=== PATIENT | female | born 1955 | race Caucasian/White ===

== ENCOUNTER 2017-08-14 12:09 | Inpatient (IN) | payer OTHER, MEDICAID, MEDICARE ==
[~2017-08-14] VITALS: Ht 170.2 cm; Wt 115.8 kg
[2017-08-14 12:20] VITALS: BP 157/92; PULSE 105; RESP 22; TEMP 98.9; O2SAT 98
--- NOTE | 2017-08-14 12:26 | PD ---
Physical Exam Time Seen by Provider: 12:23 Narrative Pt presents for evaluation of feeling confused and anxiety acute onset last evening. Denies CP or tightness. But feels increasing shortness of breath. Denies alcohol or illicit drug use. Pt reports sore throat. No other recent illness. Hx of Hep C, PTSD. Data Data Last Documented VS Vital Signs Date Time Temp Pulse Resp B/P (MAP) Pulse Ox O2 Delivery O2 Flow Rate FiO2 08/14/17 14:02 98 16 08/14/17 12:32 140/83 (102) 100 08/14/17 12:20 98.9 Room Air Orders Orders Complete Blood Count With Diff (08/14/17 12:41) Comprehensive Metabolic Panel (08/14/17 12:41) Electrocardiogram (08/14/17 12:41) Psych Screen (08/14/17 12:41) Drug Screen, Random Urine (08/14/17 12:41) Chest, Single Ap (08/14/17 12:41) Lorazepam Inj (Ativan Inj) (08/14/17 12:45) Labs Laboratory Tests Test 08/14/17 13:08 08/14/17 13:12 Urine Opiates Screen NEG Urine Barbiturates Screen NEG Urine Amphetamines Screen NEG Urine Benzodiazepines Screen NEG Urine Cocaine Screen NEG Urine Cannabinoids Screen NEG White Blood Count 9.0 TH/MM3 Red Blood Count 4.14 MIL/MM3 Hemoglobin 12.6 GM/DL Hematocrit 40.2 % Mean Corpuscular Volume 97.0 FL Mean Corpuscular Hemoglobin 30.5 PG Mean Corpuscular Hemoglobin Concent 31.4 % Red Cell Distribution Width 13.4 % Platelet Count 205 TH/MM3 Mean Platelet Volume 9.3 FL Neutrophils (%) (Auto) 68.2 % Lymphocytes (%) (Auto) 20.4 % Monocytes (%) (Auto) 10.3 % Eosinophils (%) (Auto) 0.3 % Basophils (%) (Auto) 0.8 % Neutrophils # (Auto) 6.1 TH/MM3 Lymphocytes # (Auto) 1.8 TH/MM3 Monocytes # (Auto) 0.9 TH/MM3 Eosinophils # (Auto) 0.0 TH/MM3 Basophils # (Auto) 0.1 TH/MM3 CBC Comment DIFF FINAL Differential Comment Blood Urea Nitrogen 25 MG/DL Creatinine 1.58 MG/DL Random Glucose 128 MG/DL Total Protein 8.2 GM/DL Albumin 4.0 GM/DL Calcium Level 10.6 MG/DL Alkaline Phosphatase 74 U/L Aspartate Amino Transf (AST/SGOT) 74 U/L Alanine Aminotransferase (ALT/SGPT) 56 U/L Total Bilirubin 0.7 MG/DL Sodium Level 135 MEQ/L Potassium Level 3.9 MEQ/L Chloride Level 102 MEQ/L Carbon Dioxide Level 23.2 MEQ/L Anion Gap 10 MEQ/L Estimat Glomerular Filtration Rate 33 ML/MIN [facility] Medical Record Reviewed: Yes Supervised Visit with MARIELENA: No Condition: Stable Radha Contreras Aug 14, 2017 12:26
[2017-08-14 12:32] VITALS: BP 140/83; PULSE 94; RESP 16; O2SAT 100
[2017-08-14] MEDS ORDERED: LORazepam 2 MG/ML VIAL IV PUSH ONE ×2 (12:45→17:00)
--- NOTE | 2017-08-14 12:48 | PD ---
HPI Chief Complaint: Anxiety Time Seen by Provider: 12:41 Travel History International Travel<30 days: No Contact w/Intl Traveler<30days: No Traveled to known affect area: No History of Present Illness HPI 61-year-old female patient with history of PTSD, presents to the ER today because she states that she is having palpitations, feeling jittery, while she was driving and was stopped by the boiling off winder, considering how she was looking, the boiling off winder brought her here. She apparently had problems with the battery in her car in the boiling off winder state that they would rather do here to be evaluated. She has been having symptoms since yesterday, palpitations, shortness of breath. She is fairly tearful, stating that she feels very lonely because her entire family including her son has in the past 7 years. She states is currently living with somebody who treats her poorly. She denies any suicidal or homicidal ideation. Modifying Factors: None Associated Signs & Symptoms: Palpitations, feeling jittery, anxiety Risk Factors: History of PTSD, anxiety attacks PFSH Past Medical History Psychiatric: Yes (PTSD) : 3 Para: 1 : 2 Social History Alcohol Use: No Tobacco Use: No Substance Use: No Allergies-Medications (Allergen,Severity, Reaction): Coded Allergies: carbamazepine (Verified Allergy, Severe, 08/14/17) levofloxacin (Verified Allergy, Severe, 08/14/17) Review of Systems Except as stated in HPI: all other systems reviewed are Neg Physical Exam Narrative GENERAL: Well-developed very anxious appearing elderly white female patient currently in moderate distress, getting tearful on evaluation. Awake and oriented 3. SKIN: Focused skin assessment warm/dry. HEAD: Atraumatic. Normocephalic. EYES: Pupils equal and round. No scleral icterus. No injection or drainage. ENT: No nasal bleeding or discharge. Mucous membranes pink and moist. NECK: Trachea midline. No JVD. CARDIOVASCULAR: Regular rate and rhythm. No murmur appreciated. RESPIRATORY: No accessory muscle use. Clear to auscultation. Breath sounds equal bilaterally. GASTROINTESTINAL: Abdomen soft, non-tender, nondistended. Hepatic and splenic margins not palpable. MUSCULOSKELETAL: No obvious deformities. No clubbing. No cyanosis. No edema. NEUROLOGICAL: Awake and alert. No obvious cranial nerve deficits. Motor grossly within normal limits. Normal speech. PSYCHIATRIC: Anxious mood and affect; insight and judgment normal. Data Data Last Documented VS Vital Signs Date Time Temp Pulse Resp B/P (MAP) Pulse Ox O2 Delivery O2 Flow Rate FiO2 08/14/17 14:02 98 16 08/14/17 12:32 140/83 (102) 100 08/14/17 12:20 98.9 Room Air Orders Orders Complete Blood Count With Diff (08/14/17 12:41) Comprehensive Metabolic Panel (08/14/17 12:41) Electrocardiogram (08/14/17 12:41) Psych Screen (08/14/17 12:41) Drug Screen, Random Urine (08/14/17 12:41) Chest, Single Ap (08/14/17 12:41) Lorazepam Inj (Ativan Inj) (08/14/17 12:45) Labs Laboratory Tests Test 08/14/17 13:08 08/14/17 13:12 Urine Opiates Screen NEG Urine Barbiturates Screen NEG Urine Amphetamines Screen NEG Urine Benzodiazepines Screen NEG Urine Cocaine Screen NEG Urine Cannabinoids Screen NEG White Blood Count 9.0 TH/MM3 Red Blood Count 4.14 MIL/MM3 Hemoglobin 12.6 GM/DL Hematocrit 40.2 % Mean Corpuscular Volume 97.0 FL Mean Corpuscular Hemoglobin 30.5 PG Mean Corpuscular Hemoglobin Concent 31.4 % Red Cell Distribution Width 13.4 % Platelet Count 205 TH/MM3 Mean Platelet Volume 9.3 FL Neutrophils (%) (Auto) 68.2 % Lymphocytes (%) (Auto) 20.4 % Monocytes (%) (Auto) 10.3 % Eosinophils (%) (Auto) 0.3 % Basophils (%) (Auto) 0.8 % Neutrophils # (Auto) 6.1 TH/MM3 Lymphocytes # (Auto) 1.8 TH/MM3 Monocytes # (Auto) 0.9 TH/MM3 Eosinophils # (Auto) 0.0 TH/MM3 Basophils # (Auto) 0.1 TH/MM3 CBC Comment DIFF FINAL Differential Comment Blood Urea Nitrogen 25 MG/DL Creatinine 1.58 MG/DL Random Glucose 128 MG/DL Total Protein 8.2 GM/DL Albumin 4.0 GM/DL Calcium Level 10.6 MG/DL Alkaline Phosphatase 74 U/L Aspartate Amino Transf (AST/SGOT) 74 U/L Alanine Aminotransferase (ALT/SGPT) 56 U/L Total Bilirubin 0.7 MG/DL Sodium Level 135 MEQ/L Potassium Level 3.9 MEQ/L Chloride Level 102 MEQ/L Carbon Dioxide Level 23.2 MEQ/L Anion Gap 10 MEQ/L Estimat Glomerular Filtration Rate 33 ML/MIN MDM Medical Decision Making Medical Screen Exam Complete: Yes Emergency Medical Condition: Yes Medical Record Reviewed: Yes Interpretation(s) Laboratory Tests Test 08/14/17 13:08 08/14/17 13:12 Mean Corpuscular Hemoglobin Concent 31.4 % (32.0-36.0) Monocytes (%) (Auto) 10.3 % (0.0-8.0) Blood Urea Nitrogen 25 MG/DL (7-18) Creatinine 1.58 MG/DL (0.50-1.00) Random Glucose 128 MG/DL (74-106) Calcium Level 10.6 MG/DL (8.5-10.1) Aspartate Amino Transf (AST/SGOT) 74 U/L (15-37) Alanine Aminotransferase (ALT/SGPT) 56 U/L (10-53) Sodium Level 135 MEQ/L (136-145) Estimat Glomerular Filtration Rate 33 ML/MIN (>89) Differential Diagnosis Anxiety attack versus dysrhythmias versus metabolic issues versus psychosis Narrative Course Patient appears acutely anxious and in significant emotional distress. She was given Ativan in the ER. Her lab work did not show any signs significant metabolic issues and chest x-ray was unremarkable. At this point, my plan would be to medically clear her for psychiatric evaluation. I have also asked case management to talk to the patient regarding her social circumstances. Diagnosis Primary Impression: Anxiety attack Condition: Stable Leonarda Carrillo MD Aug 14, 2017 12:48
--- NOTE | 2017-08-14 13:19 | RADRPT ---
EXAM DATE/TIME: 08/14/2017 13:02 [facility] COMPARISON: No previous studies available for comparison. INDICATIONS : Short of breath., palpitations MEDICAL HISTORY : asthma, thyroid SURGICAL HISTORY : None. ENCOUNTER: Initial ACUITY: 1 day PAIN SCORE: 0/10 LOCATION: Bilateral chest FINDINGS: A single view of the chest demonstrates the lungs to be symmetrically aerated without evidence of mas s, infiltrate or effusion. The cardiomediastinal contours are unremarkable. Osseous structures are intact. CONCLUSION: 1. No acute cardiopulmonary disease. Demar Knowles MD on August 14, 2017 at 13:17 Board Certified Radiologist. This report was verified electronically.
[2017-08-14 13:26] LABS: AUTOMATED NEUTROPHIL # 6.1 TH/MM3 (1.8-7.7); BASOPHIL # 0.1 TH/MM3 (0-0.2); BASOPHIL % 0.8 % (0.0-2.0); EOSINOPHIL % 0.3 % (0.0-4.0); HEMATOCRIT 40.2 % (35.0-46.0); HEMO FLAGS DIFF FINAL; LYMPH % 20.4 % (9.0-44.0); LYMPHOCYTE # 1.8 TH/MM3 (1.0-4.8); MEAN CORPUSCULAR HEMOGLOBIN 30.5 PG (27.0-34.0); MEAN CORPUSCULAR HGB CONC 31.4 % (32.0-36.0); MONO % 10.3 % (0.0-8.0); NEUT % 68.2 % (16.0-70.0); PLATELET COUNT 205 TH/MM3 (150-450); RED BLOOD COUNT 4.14 MIL/MM3 (4.00-5.30); RED CELL DISTRIBUTION WIDTH 13.4 % (11.6-17.2)
[2017-08-14 13:47] LABS: ALKALINE PHOSPHATASE 74 U/L (45-117); TOTAL BILIRUBIN ADULT 0.7 MG/DL (0.2-1.0)
[2017-08-14 13:51] LABS: ALT (GPT) 56 U/L (10-53); ANION GAP 10 MEQ/L (5-15); AST (GOT) 74 U/L (15-37); BICARBONATE 23.2 MEQ/L (21.0-32.0); BLOOD UREA NITROGEN 25 MG/DL (7-18); CHLORIDE 102 MEQ/L (98-107); GLOMERULAR FILTRATION RATE 33 ML/MIN (>89); POTASSIUM 3.9 MEQ/L (3.5-5.1); SODIUM (NA) 135 MEQ/L (136-145)
[2017-08-14 16:15] LABS: CKMB 18.5 NG/ML (0.5-3.6)
[2017-08-14 17:26] VITALS: BP 165/86; PULSE 97; RESP 18; TEMP 98.2; O2SAT 98
[2017-08-14 18:17] VITALS: BP 137/80; PULSE 85; RESP 18; O2SAT 98
[2017-08-14] MEDS ORDERED: TRAM50TA PO (19:22)
[2017-08-14] MEDS ORDERED: METO50TA PO (19:22)
[2017-08-14] MEDS ORDERED: LEXA10TA PO (19:22)
[2017-08-14] MEDS ORDERED: ALBUAER3 INH (19:22)
[2017-08-14] MEDS ORDERED: LEVO.1 PO (19:22)
[2017-08-14] MEDS ORDERED: AMBI10TA PO (19:22)
[2017-08-14] MEDS ORDERED: CLON0.5T PO (19:22)
[2017-08-14] MEDS ORDERED: HALOPERIDOL LACTATE 5 MG/ML AMP IM ONE (22:45)
[2017-08-14] MEDS ORDERED: LORazepam 2 MG/ML VIAL IM ONE (22:45)
[2017-08-15 05:00] VITALS: BP 144/68; PULSE 100; RESP 14; O2SAT 97
[2017-08-15 09:00] VITALS: BP 146/82; PULSE 90; RESP 18; O2SAT 98
[2017-08-15 09:24] LABS: BLOOD, URINE NEG (NEG); GLUCOSE,URINE NEG (NEG); KETONE, URINE TRACE mg/dL (NEG); NITRITE,URINE NEG (NEG); SQUAMOUS EPITHELIAL CELL URINE 3 /hpf (0-5)
[2017-08-15 09:25] LABS: COMMENT (UR) CULTURE INDICATED; CULTURE IF INDICATED CULTURE INDICATED; URINE COLOR YELLOW (YELLW/STRAW)
[2017-08-15] MEDS ORDERED: BACT800T5 PO (09:33)
[2017-08-15] MEDS ORDERED: SULFAMETHOXAZOLE-TRIMETHOPRIM DS 800-160 MG TAB PO ONE (09:45)
[2017-08-15] MEDS ORDERED: diphenhydrAMINE HCL 50 MG CAP PO PRN (12:00)
[2017-08-15] MEDS ORDERED: LORazepam 2 MG/ML VIAL IM PRN (12:00)
[2017-08-15] MEDS ORDERED: ACETAMINOPHEN 325 MG TAB PO PRN (12:00)
[2017-08-15] MEDS ORDERED: diphenhydrAMINE HCL 50 MG/ML VIAL IM PRN (12:00)
[2017-08-15] MEDS ORDERED: MAGNESIUM HYDROXIDE SUSP 30 ML CUP PO PRN (12:00)
[2017-08-15] MEDS ORDERED: ALUMINUM/MAGNESIUM/SIMETH 30 ML CUP PO PRN (12:00)
--- NOTE | 2017-08-15 12:06 | HHI.HP ---
Provisional Diagnosis Admission Date [place] I. Brief psychotic disorder Certification of Person's Competence To Provide Express and Informed Consent I have personally examined Zoe Loyola , a person being served at [facility] on, Aug 15, 2017 11:57. Express and informed consent means consent voluntarily given in writing, by a competent person, after sufficient explanation and disclosure of the subject matter involved to enable the person to make a knowing and willful decision without any element of force, fraud, deceit, duress, or other form of constraint or coercion. This person is 18 years of age or older, is not now known to be incompetent to consent to treatment with a guardian advocate, and does not have a health care surrogate or proxy currently making medical treatment decisions. I have found this person to be one of the following: [] Competent to provide express and informed consent, as defined above, for voluntary admission to this facility and is competent to provide express and informed consent for treatment. He/she has the consistent capacity to make well reasoned, willful, and knowing decisions concerning his or her medical or mental health treatment. The person fully and consistently understands the purpose of the admission for examination/placement and is fully capable of personally exercising all rights [place] [x] Incompetent to provide express and informed consent to voluntary admission, and this is incompetent to provide express and informed consent to treatment. The person must be transferred to involuntary status and a petition for a guardian advocate filed with the Circuit Court. [] Refusing to provide express and informed consent to voluntary admission but is competent to provide express and informed consent for treatment. The person must be discharged or transferred to involuntary status. Form shall be completed within 24 hours of a person's arrival at the receiving facility and filed in the clinical record of each person: 1. Admitted on a voluntary basis 2. Permitted to provide express and informed consent to his/her own treatment 3. Allowed to transfer from involuntary to voluntary status 4. Prior to permitting a person to consent to his or her own treatment after having been previously found incompetent to consent to treatment. History of Present Illness Capacity: Lacks Capacity HPI 61-year-old female, poor historian, brought in by law enforcement for suicidal ideation. Patient was apparently stopped by law enforcement and found to be behaving strangely, with anxiety, tearfulness, jittery, stating she had lost all members of her family in the last 7 years, including her son. She reportedly wanted to join her son and told the officers that she was hearing voices. Upon interview, patient is unable to provide any cogent history. She returned. Yasmany talks about someone named Dalton and the family taking things from her. She demonstrates significant looseness of associations that borders on word salad. She is obviously responding to internal stimuli. She exhibits thought blocking. She has ideas of reference. She feels paranoid and that she states the hospital staff are trying to control her and ruined her life. She is unable to answer questions directly and provides nonsensical responses, tangential responses and circumstantial responses. She does admit to ongoing auditory hallucinations. She also admits to suicidal ideation. She does not have a plan as to how she would kill herself, but obviously driving a car in this psychotic state is dangerous to herself and others. Review of Systems Except as stated in HPI: all other systems reviewed are Neg Past Psych History Psychological trauma history Patient admits to past psychiatric history but cannot provide Violence risk - others (6 mos) High based on recent behavior. Violence risk - self (6 mos) High based on recent behavior. Substance Abuse History Drugs/Alcohol past 12 months Denied Past Family Social History Coded Allergies: carbamazepine (Verified Allergy, Severe, 08/14/17) levofloxacin (Verified Allergy, Severe, 08/14/17) Active Scripts Sulfamethoxazole-Trimethoprim (Bactrim DS) 800-160 Mg Tab, 1 TAB PO BID for Infection, #14 TAB 0 Refills Prov:Yaya Hsieh MD 08/15/17 Reported Medications Albuterol 8.5 GM Inh (Proair Hfa 8.5 GM Inh) 90 Mcg/Act Aer, 1 PUFF INH Q4-6H Y for SHORTNESS OF BREATH, #1 INHALER 0 Refills 108 mcg/actuation 08/14/17 Tramadol (Tramadol) 50 Mg Tab, 50-100 MG PO Q4-6H Y for PAIN, TAB 0 Refills 08/14/17 Metoprolol Tartrate (Metoprolol Tartrate) 50 Mg Tab, 50 MG PO Q6HR, #30 TAB 0 Refills 08/14/17 Levothyroxine (Synthroid) 100 Mcg Tab, 100 MCG PO DAILY for Thyroid, #30 TAB 0 Refills 08/14/17 Escitalopram (Lexapro) 10 Mg Tab, 10 MG PO DAILY, #30 TAB 0 Refills 08/14/17 Clonazepam (Clonazepam) 0.5 Mg Tab, 0.5 MG PO BID, #60 TAB 0 Refills 08/14/17 Zolpidem (Ambien) 10 Mg Tab, 10 MG PO HS, TAB 0 Refills 08/14/17 Family History Unable to provide family history. Social History Unable to provide social history. Patient's Strengths (min. 2) Resilient and has access to healthcare. Physical Exam GENERAL: SKIN: Warm and dry. HEAD: Normocephalic. EYES: No scleral icterus. No injection or drainage. NECK: Supple, trachea midline. No JVD or lymphadenopathy. CARDIOVASCULAR: Regular rate and rhythm without murmurs, gallops, or rubs. RESPIRATORY: Breath sounds equal bilaterally. No accessory muscle use. GASTROINTESTINAL: Abdomen soft, non-tender, nondistended. MUSCULOSKELETAL: No cyanosis, or edema. BACK: Nontender without obvious deformity. No CVA tenderness. Vital Signs Vital Signs Date Time Temp Pulse Resp B/P (MAP) Pulse Ox O2 Delivery O2 Flow Rate FiO2 08/15/17 09:00 90 18 146/82 (103) 98 Room Air 08/14/17 17:26 98.2 Lab Results Test 08/14/17 13:08 08/14/17 13:12 Urine Color YELLOW Urine Turbidity CLOUDY Urine pH 5.0 Urine Specific [place] 1.022 Urine Protein TRACE mg/dL Urine Glucose (UA) NEG mg/dL Urine Ketones TRACE mg/dL Urine Occult Blood NEG Urine Nitrite NEG Urine Bilirubin NEG Urine Urobilinogen LESS THAN 2.0 MG/DL Urine Leukocyte Esterase LARGE Urine WBC 22 /hpf Urine Squamous Epithelial Cells 3 /hpf Urine Amorphous Sediment MOD Microscopic Urinalysis Comment CULTURE INDICATED Urine Opiates Screen NEG Urine Barbiturates Screen NEG Urine Amphetamines Screen NEG Urine Benzodiazepines Screen NEG Urine Cocaine Screen NEG Urine Cannabinoids Screen NEG White Blood Count 9.0 TH/MM3 Red Blood Count 4.14 MIL/MM3 Hemoglobin 12.6 GM/DL Hematocrit 40.2 % Mean Corpuscular Volume 97.0 FL Mean Corpuscular Hemoglobin 30.5 PG Mean Corpuscular Hemoglobin Concent 31.4 % Red Cell Distribution Width 13.4 % Platelet Count 205 TH/MM3 Mean Platelet Volume 9.3 FL Neutrophils (%) (Auto) 68.2 % Lymphocytes (%) (Auto) 20.4 % Monocytes (%) (Auto) 10.3 % Eosinophils (%) (Auto) 0.3 % Basophils (%) (Auto) 0.8 % Neutrophils # (Auto) 6.1 TH/MM3 Lymphocytes # (Auto) 1.8 TH/MM3 Monocytes # (Auto) 0.9 TH/MM3 Eosinophils # (Auto) 0.0 TH/MM3 Basophils # (Auto) 0.1 TH/MM3 CBC Comment DIFF FINAL Differential Comment Blood Urea Nitrogen 25 MG/DL Creatinine 1.58 MG/DL Random Glucose 128 MG/DL Total Protein 8.2 GM/DL Albumin 4.0 GM/DL Calcium Level 10.6 MG/DL Alkaline Phosphatase 74 U/L Aspartate Amino Transf (AST/SGOT) 74 U/L Alanine Aminotransferase (ALT/SGPT) 56 U/L Total Bilirubin 0.7 MG/DL Sodium Level 135 MEQ/L Potassium Level 3.9 MEQ/L Chloride Level 102 MEQ/L Carbon Dioxide Level 23.2 MEQ/L Anion Gap 10 MEQ/L Estimat Glomerular Filtration Rate 33 ML/MIN Total Creatine Kinase 673 U/L Creatine Kinase MB 18.5 NG/ML Creatine Kinase MB % 2.7 % Troponin I 0.02 NG/ML Date/Time Source Procedure Growth Status 08/14/17 13:08 Urine Clean Catch Urine Culture Pending Received Mental Status Examination Speech: Incoherent Orientation: Person Memory: Impaired (describe) Thought Process: Flight of Ideas, Loose Association, Tangential, Thought Blocking Thought Content: Bizarre thinking, Paranoid Hallucination Type: Auditory Attention and Concentration: Easily Distracted Suicidal Ideation: Yes Previous Suicide Attempts: No Homicidal Ideation: No Previous Homicide Attempts: No Insight: Poor Judgment: WNL, Poor Affect: Anxious Mood: Anxious Motor Activity: Normal gait Assessment & Plan Problem List: (1) Brief psychotic disorder ICD Codes: F23 - Brief psychotic disorder Assessment & Plan Estimated LOS: days 61-year-old female obviously psychotic, and driving a car, [place] acted by police for suicidal ideation. Patient is felt to be highly dangerous to self and others. For this reason she is being admitted for further evaluation and treatment. This physician is ordering a CBC and comprehensive metabolic panel to determine if any infectious or metabolic process is causing or contributing to her psychosis. Additionally, we will obtain thyroid stimulating hormone levels, vitamin B-12 levels and vitamin D levels to determine if any deficiency in these areas is causing or contributing to her psychosis. This physician has furthermore ordered an EKG to determine the patient's cardiac conduction status prior to starting psychotropic medicines that are not needed emergently, to protect her cardiac conduction system. Patient has overweight and likely to have cardiovascular disease. This physician has consulted psychiatry for second opinion as the patient is not felt to be competent to make medical decisions. This case was discussed with nurse Granado. Additionally, case management services will be involved to hopefully obtain further information and assist with disposition planning. Talha Mireles MD Aug 15, 2017 12:06
[2017-08-15] MEDS: LORazepam 1 MG TAB PO PRN ×2 (12:14→20:53)
[2017-08-15 12:15] VITALS: BP 144/82; PULSE 80; RESP 18; O2SAT 99
--- NOTE | 2017-08-15 14:20 | EKG ---
Date Performed: 08/14/2017 Time Performed: 15:02:39 PTAGE: 61 years EKG: Sinus rhythm ANTERIOR ST DEPRESSION T WAVE ABNORMALITY ABNORMAL ECG INTERPRETATION BASED ON A DEFAULT AGE OF 38 Y EARS NO PREVIOUS TRACING DOCTOR: Hany Monte Interpretating Date/Time 08/15/2017 14:18:58
[2017-08-15 15:06] VITALS: BP 172/74; PULSE 87; RESP 18; O2SAT 98
--- NOTE | 2017-08-15 16:02 | RADRPT ---
EXAM DATE/TIME: 08/15/2017 15:45 [facility] COMPARISON: No previous studies available for comparison. INDICATIONS : Left knee pain, unknown injury. MEDICAL HISTORY : None. SURGICAL HISTORY : None. ENCOUNTER: Initial ACUITY: 1 day PAIN SCORE: 10/10 LOCATION: Left knee. FINDINGS: There is no evidence of joint effusion or fracture. Mineralization is normal. There is mild chondroca lcinosis indicating pyrophosphate arthropathy. CONCLUSION: Mild changes of pyrophosphate arthropathy. No acute bony findings Lobo Cuba MD on August 15, 2017 at 16:00 Board Certified Radiologist. This report was verified electronically.
[2017-08-15] MEDS: SODIUM CHLOR 0.9% 1000 ML INJ 1,000 ML IV SCH ×2 (16:15→22:55)
--- NOTE | 2017-08-15 16:22 | RADRPT ---
EXAM DATE/TIME: 08/15/2017 15:47 [facility] COMPARISON: No previous studies available for comparison. INDICATIONS : Left foot pain and bruising on dorsal surface. MEDICAL HISTORY : None. SURGICAL HISTORY : None. ENCOUNTER: Initial ACUITY: 1 day PAIN SCORE: Non-responsive. LOCATION: Left foot. FINDINGS: Two view examination of the left foot demonstrates no soft tissue swelling, dislocation, or fracture. The calcaneus is intact. Bony mineralization is normal. CONCLUSION: Unremarkable limited examination of the left foot. Lobo Cuba MD on August 15, 2017 at 16:19 Board Certified Radiologist. This report was verified electronically.
--- NOTE | 2017-08-15 16:38 | PD.CONS ---
[facility] Primary Care Physician Unknown Diagnoses: History of Present Illness Ms. Loyola is a pleasant 61 year old female with a history of PTSD who was brought to the hospital by law enforcement for an evaluation of her confusion, anxiety. Patient was subsequently admitted to the psychiatry service. Per psychiatry note, patient also had suicidal ideations and was Grijalva acted. At the time of this interview, patient standing near room door in ED psychiatry room (J Pod). Her bed well made and empty. However, she points to her bed and tells me there are monkeys in her bed. She is also concerned that during our conversation, people are listening to us and laughing at her. Nonetheless, she is pleasant, cooperative. She is oriented to name, place, month , year and knows the name of the current [employer] president. She denies any chest pain, SOB, fever, chills. Denies any dysuria, hematuria. No changes in bowel habits. Review of Systems ROS Limitations: Clinical Condition Except as stated in HPI: all other systems reviewed are Neg Past Family Social History Allergies: Coded Allergies: carbamazepine (Verified Allergy, Severe, 08/14/17) levofloxacin (Verified Allergy, Severe, 08/14/17) Past Medical History Per patient (This may not be reliable). Hypertension Thyroid disease Hep C Past Surgical History No major surgery in the past. Active Ordered Medications Current Medications Medications (Trade) Dose Ordered Sig/Yuan Route Start Time Stop Time Status Last Admin (Ativan) 1 mg Q6H PRN PO 08/15/17 12:00 08/15/17 20:53 (Ativan Inj) 1 mg Q6H PRN IM 08/15/17 12:00 (Benadryl) 50 mg Q6H PRN PO 08/15/17 12:00 (Benadryl Inj) 50 mg Q6H PRN IM 08/15/17 12:00 (Tylenol) 650 mg Q4H PRN PO 08/15/17 12:00 (Milk Of Magnesia Liq) 30 ml DAILY PRN PO 08/15/17 12:00 (Mag-Al Plus Susp Liq) 30 ml Q6H PRN PO 08/15/17 12:00 Sodium Chloride 1,000 ml @ 150 mls/hr Q6H40M IV 08/15/17 16:15 08/15/17 16:15 Ceftriaxone Sodium 1000 mg/ Sodium Chloride 100 ml @ 200 mls/hr Q24H IV 08/15/17 17:00 08/15/17 17:00 (Procardia Xl) 30 mg DAILY PO 08/15/17 19:00 (Catapres) 0.1 mg Q6H PRN PO 08/15/17 18:30 08/15/17 18:30 Family History Mom and dad - heart failure. Mom - COPD as well. Social History Denies using tobacco, alcohol or illicit drugs. Physical Exam Vital Signs Vital Signs Date Time Temp Pulse Resp B/P (MAP) Pulse Ox O2 Delivery O2 Flow Rate FiO2 08/15/17 15:06 87 18 172/74 (106) 98 Room Air 08/15/17 12:15 80 18 144/82 (102) 99 Room Air 08/15/17 09:00 90 18 146/82 (103) 98 Room Air 08/15/17 05:00 100 14 144/68 (93) 97 08/14/17 18:17 85 18 137/80 (99) 98 Room Air 08/14/17 17:26 98.2 97 18 165/86 (112) 98 Room Air Physical Exam GENERAL: This is a well-nourished, well-developed patient, in no apparent distress. Alert, oriented x 3. However, she is having active visual hallucinations. SKIN: No rashes, ecchymoses or lesions. Warm and dry. HEAD: Atraumatic. Normocephalic. No temporal or scalp tenderness. EYES: Pupils equal round and reactive. No injection or drainage. ENT: Nose without bleeding, purulent drainage or septal hematoma. Airway patent. NECK: Trachea midline. No lymphadenopathy. Supple, nontender, no meningeal signs. CARDIOVASCULAR: Regular rate and rhythm without murmurs, gallops, or rubs. No JVD. RESPIRATORY: Clear to auscultation. Breath sounds equal bilaterally. No wheezes , rales, or rhonchi. GASTROINTESTINAL: Abdomen soft, non-tender, nondistended. No guarding. MUSCULOSKELETAL: Extremities without clubbing, cyanosis, or edema. NEUROLOGICAL: Awake and alert. Cranial nerves II through XII intact. No focal neurological deficits. Normal speech. Laboratory Date/Time Source Procedure Growth Status 08/14/17 13:08 Urine Clean Catch Urine Culture Pending Received Result Diagram: 08/14/17 1312 08/14/17 1312 Imaging Last Impressions Knee X-Ray 08/15/17 0000 Signed Impressions: Service Date/Time: Tuesday, August 15, 2017 15:45 - CONCLUSION: Mild changes of pyrophosphate arthropathy. No acute bony findings Lobo Cuba MD Foot X-Ray 08/15/17 0000 Signed Impressions: Service Date/Time: Tuesday, August 15, 2017 15:47 - CONCLUSION: Unremarkable limited examination of the left foot. Lobo Cuba MD Chest X-Ray 08/14/17 1241 Signed Impressions: Service Date/Time: Monday, August 14, 2017 13:02 - CONCLUSION: 1. No acute cardiopulmonary disease. Demar Knowles MD Assessment and Plan Problem List: (1) Brief psychotic disorder ICD Code: F23 - Brief psychotic disorder (2) Rhabdomyolysis ICD Code: M62.82 - Rhabdomyolysis (3) MERA (acute kidney injury) ICD Code: N17.9 - Acute kidney failure, unspecified (4) HTN (hypertension) ICD Code: I10 - Essential (primary) hypertension Assessment and Plan Ms. Loyola is a pleasant 61 year old female with a history of PTSD, possibly HTN as well who was Grijalva acted due to confusion, anxiety, probably suicidal ideations. Hospitalist service was consulted for medical management. At the time of this initial consultation, patient was having active hallucinations. - Brief psychotic disorder - Possibly paranoid schizophrenia - Patient has visual hallucinations. - Also believes people are listening to our conversations and laughing at her. - Management per psychiatry. Mild rhabdomyolysis Probable Urinary tract infection Acute kidney injury - Total CK 673, Creatinine 1.58, baseline unknown, UA shows evidence of UTI. - Would recommend admission to med-psych floor. - Start an IV access. - Normal saline @ 150cc/hour. - Ceftriaxone 1g Q24hrs. - Will obtain Total CK in the AM. - Follow urine cx. - Hypertension - BP in the 170s systolic. - Will start Nifedipine 30mg Qday and Clonidine 0.1mg PRN. - Patient reported Hep C (chronic), Thyroid disease (TSH pending). Lipid profile , HbA1c pending. Full code. Ambulation. Thank you for the consult. We will continue to follow this patient with you. Roseline Maynard DO Aug 15, 2017 16:37
[2017-08-15] MEDS ORDERED: diphenhydrAMINE HCL 50 MG CAP PO ONE (17:00)
[2017-08-15] MEDS: cefTRIAXone INJ 1,000 MG in SODIUM CHLORIDE 0.9% INJ 100 ML IV SCH (17:00)
[2017-08-15] MEDS ORDERED: HALOPERIDOL 5 MG TAB PO ONE (17:00)
[2017-08-15 18:05] VITALS: BP 176/92; PULSE 138; RESP 16; TEMP 97.7; O2SAT 96
[2017-08-15] MEDS ORDERED: cloNIDine HCL 0.1 MG TAB PO PRN (18:30)
[2017-08-15] MEDS: NIFEdipine 30 MG SUSTAINED RELEASE TAB PO SCH (19:00)
[2017-08-16] MEDS: SODIUM CHLOR 0.9% 1000 ML INJ 1,000 ML IV SCH ×3 (00:58→16:05)
[2017-08-16 03:28] VITALS: BP 152/60; PULSE 110; RESP 17; TEMP 98.4; O2SAT 94
[2017-08-16 07:34] VITALS: BP 182/88; PULSE 60; RESP 18; TEMP 97.6; O2SAT 98
[2017-08-16] MEDS: NIFEdipine 30 MG SUSTAINED RELEASE TAB PO SCH (07:56)
--- NOTE | 2017-08-16 08:18 | HHI.PR ---
Subjective Remarks Follow up visit rhabdomyolysis, UTI, PTSD, HTN, hypothyroidism, Hep C. Seen and examined today sitting in Valerie chair. Paranoia noted. States she wants to go home, whispering "I need to go home because there are lots of bugs crawling her on me." "I don't want to go to the bathroom because there is more there." Denies pain or discomfort, SOB/ dyspnea. Denies fevers, chills. Denies dysuria. Objective Vitals Vital Signs Date Time Temp Pulse Resp B/P (MAP) Pulse Ox O2 Delivery O2 Flow Rate FiO2 08/16/17 07:34 () 08/16/17 03:28 98.4 110 17 152/60 (90) 94 08/15/17 18:06 08/15/17 18:05 97.7 138 16 176/92 (120) 96 08/15/17 15:06 87 18 172/74 (106) 98 Room Air 08/15/17 12:15 80 18 144/82 (102) 99 Room Air 08/15/17 09:00 90 18 146/82 (103) 98 Room Air I/O 08/15/17 08/15/17 08/15/17 08/16/17 08/16/17 08/16/17 07:00 15:00 23:00 07:00 15:00 23:00 Intake Total 480 ml 1890 ml Balance 480 ml 1890 ml Intake Oral 480 ml 240 ml IV Total 1650 ml # Voids 1 2 Result Diagram: 08/14/17 1312 08/14/17 1312 Imaging Last Impressions Knee X-Ray 08/15/17 0000 Signed Impressions: Service Date/Time: Tuesday, August 15, 2017 15:45 - CONCLUSION: Mild changes of pyrophosphate arthropathy. No acute bony findings Lobo Cuba MD Foot X-Ray 08/15/17 0000 Signed Impressions: Service Date/Time: Tuesday, August 15, 2017 15:47 - CONCLUSION: Unremarkable limited examination of the left foot. Lobo Cuba MD Chest X-Ray 08/14/17 1241 Signed Impressions: Service Date/Time: Monday, August 14, 2017 13:02 - CONCLUSION: 1. No acute cardiopulmonary disease. Demar Knowles MD Objective Remarks GENERAL: This is a well-nourished, well-developed patient, in no apparent distress. SKIN: Warm and dry. HEENT: Normocephalic. Pupils equal round and reactive. Nose without bleeding. Airway patent. NECK: Trachea midline. No JVD. Supple. CARDIOVASCULAR: Regular rate and rhythm without murmurs, gallops, or rubs. RESPIRATORY: Clear to auscultation. Breath sounds equal bilaterally. No wheezes , rales, or rhonchi. GASTROINTESTINAL: Abdomen soft, non-tender, nondistended. Bowel Sounds normoactive x4. MUSCULOSKELETAL: Extremities without clubbing, cyanosis, or edema. NEUROLOGICAL: Awake and alert. Oriented to person. Paranoia. Moves all extremities. Normal speech. A/P Problem List: (1) Brief psychotic disorder ICD Code: F23 - Brief psychotic disorder (2) Rhabdomyolysis ICD Code: M62.82 - Rhabdomyolysis (3) MERA (acute kidney injury) ICD Code: N17.9 - Acute kidney failure, unspecified (4) HTN (hypertension) ICD Code: I10 - Essential (primary) hypertension Assessment and Plan Ms. Loyola is a pleasant 61 year old female with a history of PTSD, possibly HTN as well who was Grijalva acted due to confusion, anxiety, probably suicidal ideations. Hospitalist service was consulted for medical management. - Brief psychotic disorder - Possibly paranoid schizophrenia - Patient has visual hallucinations. - States bugs crawling all over and around her - Management per psychiatry. Mild rhabdomyolysis Probable Urinary tract infection Acute kidney injury - Total CK 673, Creatinine 1.58, baseline unknown, UA shows evidence of UTI. - IV access. Normal saline @ 150cc/hour. - Ceftriaxone 1g Q24hrs. - Follow urine cx. - Trend CK Hypertension - BP in the 170s systolic. - Will start Nifedipine 30mg Qday and Clonidine 0.1mg PRN. Patient reported Hep C (chronic), Thyroid disease (TSH pending). Lipid profile, HbA1c pending. Full code. Ambulation. Discuss with patient, nursing, Dr, Helen Zuniga Aug 16, 2017 08:18
[2017-08-16 11:31] LABS: AUTOMATED NEUTROPHIL # 1.8 TH/MM3 (1.8-7.7); BASOPHIL % 0.5 % (0.0-2.0); EOSINOPHIL # 0.1 TH/MM3 (0-0.4); EOSINOPHIL % 1.9 % (0.0-4.0); HEMATOCRIT 35.6 % (35.0-46.0); HEMO FLAGS DIFF FINAL; LYMPH % 24.9 % (9.0-44.0); LYMPHOCYTE # 0.7 TH/MM3 (1.0-4.8); MEAN CELL VOLUME 96.4 FL (80.0-100.0); MEAN CORPUSCULAR HEMOGLOBIN 30.6 PG (27.0-34.0); MEAN CORPUSCULAR HGB CONC 31.7 % (32.0-36.0); MONO % 11.3 % (0.0-8.0); NEUT % 61.4 % (16.0-70.0); PLATELET COUNT 125 TH/MM3 (150-450); RED CELL DISTRIBUTION WIDTH 13.1 % (11.6-17.2); WHITE BLOOD COUNT 2.9 TH/MM3 (4.0-11.0)
[2017-08-16 12:07] LABS: ALKALINE PHOSPHATASE 67 U/L (45-117); ALT (GPT) 66 U/L (10-53); ANION GAP 8 MEQ/L (5-15); AST (GOT) 66 U/L (15-37); BICARBONATE 24.7 MEQ/L (21.0-32.0); BLOOD UREA NITROGEN 8 MG/DL (7-18); CHLORIDE 108 MEQ/L (98-107); CREATINE KINASE 295 U/L (26-192); GLOMERULAR FILTRATION RATE 59 ML/MIN (>89); HDL CHOLESTEROL 42.1 MG/DL (40.0-60.0); LDL CHOLESTEROL 117 MG/DL (0-99); POTASSIUM 3.3 MEQ/L (3.5-5.1); SODIUM (NA) 141 MEQ/L (136-145); TOTAL BILIRUBIN ADULT 0.5 MG/DL (0.2-1.0)
[2017-08-16 12:24] LABS: CKMB 9.6 NG/ML (0.5-3.6)
[2017-08-16] MEDS ORDERED: PROPRANOLOL HCL 10 MG TAB PO SCH (13:00)
[2017-08-16] MEDS ORDERED: POTASSIUM CHLORIDE 10 MEQ CONTROLLED RELEASE TAB PO ONE (13:15)
[2017-08-16] MEDS ORDERED: LORazepam 2 MG/ML VIAL IV PUSH PRN ×4 (13:45)
[2017-08-16] MEDS ORDERED: FLUMAZENIL 0.5 MG/5 ML VIAL IV PUSH PRN (13:45)
[2017-08-16] MEDS ORDERED: LORazepam 1 MG TAB PO PRN (13:45)
[2017-08-16] MEDS ORDERED: LORazepam 2 MG TAB PO PRN (13:45)
--- NOTE | 2017-08-16 13:47 | HHI.PYPN ---
Subjective Remarks Patient was seen today for psychiatric follow-up. Patient was seen with medical student, social security specialist oKrin and nurse in charge Eren. Patient is visibly very distressed, paranoid, asking often worry does people in the door, when nobody is in the door, patient also reports that she has been seeing snakes , and fat animals try to get in her bed. Patient seems to really be confused, but she is linear, goal directed, she is oriented 3 at this moment. She is compliant with her medications,and if the side effects. She denies the use of illicit drugs, she says that she has been using clonazepam every day, 2-3 pills , denies alcohol. Review of Systems Other No somatic complaints Mental Status Examination Consciousness: Confused Appearance: Appropriate Speech: Incoherent Orientation: Person Memory: Impaired (describe) Thought Content: Bizarre thinking Attention and Concentration: Easily Distracted Suicidal Ideation: Yes Previous Suicide Attempts: No Homicidal Ideation: No Previous Homicide Attempts: No Mood: Anxious Results Labs Test 08/16/17 11:00 White Blood Count 2.9 TH/MM3 Red Blood Count 3.70 MIL/MM3 Hemoglobin 11.3 GM/DL Hematocrit 35.6 % Mean Corpuscular Volume 96.4 FL Mean Corpuscular Hemoglobin 30.6 PG Mean Corpuscular Hemoglobin Concent 31.7 % Red Cell Distribution Width 13.1 % Platelet Count 125 TH/MM3 Mean Platelet Volume 9.6 FL Neutrophils (%) (Auto) 61.4 % Lymphocytes (%) (Auto) 24.9 % Monocytes (%) (Auto) 11.3 % Eosinophils (%) (Auto) 1.9 % Basophils (%) (Auto) 0.5 % Neutrophils # (Auto) 1.8 TH/MM3 Lymphocytes # (Auto) 0.7 TH/MM3 Monocytes # (Auto) 0.3 TH/MM3 Eosinophils # (Auto) 0.1 TH/MM3 Basophils # (Auto) 0.0 TH/MM3 CBC Comment DIFF FINAL Differential Comment Blood Urea Nitrogen 8 MG/DL Creatinine 0.96 MG/DL Random Glucose 128 MG/DL Total Protein 7.2 GM/DL Albumin 3.6 GM/DL Calcium Level 9.5 MG/DL Alkaline Phosphatase 67 U/L Aspartate Amino Transf (AST/SGOT) 66 U/L Alanine Aminotransferase (ALT/SGPT) 66 U/L Total Bilirubin 0.5 MG/DL Sodium Level 141 MEQ/L Potassium Level 3.3 MEQ/L Chloride Level 108 MEQ/L Carbon Dioxide Level 24.7 MEQ/L Anion Gap 8 MEQ/L Estimat Glomerular Filtration Rate 59 ML/MIN Total Creatine Kinase 295 U/L Creatine Kinase MB 9.6 NG/ML Creatine Kinase MB % 3.3 % Triglycerides Level 96 MG/DL Cholesterol Level 178 MG/DL LDL Cholesterol 117 MG/DL HDL Cholesterol 42.1 MG/DL Cholesterol/HDL Ratio 4.22 RATIO Vitamin B12 Level 832 PG/ML 25-Hydroxy Vitamin D Total 9.7 ng/ML Thyroid Stimulating Hormone 3rd Gen 6.140 uIU/ML Date/Time Source Procedure Growth Status 08/14/17 13:08 Urine Clean Catch Urine Culture - Preliminary Gram Negative Flynn Resulted Vitals/IOs Vital Signs Date Time Temp Pulse Resp B/P (MAP) Pulse Ox O2 Delivery O2 Flow Rate FiO2 08/16/17 07:34 () 08/15/17 15:06 Room Air Intake and Output 08/16/17 08/16/17 08/17/17 08:00 16:00 00:00 Intake Total 1890 ml 240 ml Balance 1890 ml 240 ml Assessment & Plan Problem List: (1) Brief psychotic disorder ICD Codes: F23 - Brief psychotic disorder Assessment & Plan: Patient presents acute symptoms of psychosis, she is very paranoid, formication, visual hallucinations of bugs, animals and she seems to be distressed about it. We'll start Seroquel 25 mg twice a day for psychosis, will start CIWA symptoms of benzodiazepines withdrawal could be a possibility as etiological factor of psychosis. Assessment & Plan Estimated LOS: days Justification for Cont. Inpt. Patient is acutely psychotic, confused, she needs to continue psychiatric hospitalization for stabilization. Finesse Titus MD Aug 16, 2017 13:47
[2017-08-16] MEDS: QUEtiapine FUMARATE 25 MG TAB PO SCH ×2 (13:58→20:53)
[2017-08-16] MEDS ORDERED: ERGOCALCIFEROL (VIT D2) 50,000 UNIT CAP PO SCH (14:00)
--- NOTE | 2017-08-16 14:18 | EKG ---
Date Performed: 08/16/2017 Time Performed: 07:38:03 PTAGE: 61 years EKG: Sinus rhythm WITH SHORT PA INTERVAL ST DEVIATION AND MODERATE T-WAVE ABNORMALITY, CONSIDER ANTEROLATERAL ISCHEMIA ST DEVIATION AND MODERATE T-WAVE ABNORMALITY, CONSIDER INFERIOR ISCHEMIA ABNORMAL ECG PREVIOUS TRACING : 08/14/2017 15.02 Since prior tracing, previously seen ST inferior changes ar e more prominent, consider ischemia. DOCTOR: Seven Fisher Interpretating Date/Time 08/16/2017 14:18:09
[2017-08-16] MEDS: cefTRIAXone INJ 1,000 MG in SODIUM CHLORIDE 0.9% INJ 100 ML IV SCH (16:05)
[2017-08-16 18:02] VITALS: BP 128/72; PULSE 90; RESP 19; TEMP 98; O2SAT 97
[2017-08-16 18:16] LABS: HEMOGLOBIN A1a 0.9 %; HEMOGLOBIN A1b 0.4 %; HEMOGLOBIN Ao 89.7 %; HEMOGLOBIN LA1C 1.8 %; HEMOGLOBIN P3 3.5 %
[2017-08-17] MEDS: SODIUM CHLOR 0.9% 1000 ML INJ 1,000 ML IV SCH (01:35)
[2017-08-17 05:14] VITALS: BP 149/76; PULSE 107; RESP 16; TEMP 98.3
[2017-08-17 06:15] LABS: BICARBONATE 24.3 MEQ/L (21.0-32.0); POTASSIUM 3.4 MEQ/L (3.5-5.1)
[2017-08-17] MEDS ORDERED: PILL SPLITTER OTHER PRN (08:00)
--- NOTE | 2017-08-17 08:22 | HHI.PR ---
Subjective Remarks Follow up visit rhabdomyolysis, UTI, PTSD, HTN, hypothyroidism, Hep C. Patient seen and examined today. patient laying in bed. States she is doing well. Patient noted to be more coherent. No paranoia noted. Denies pain and discomfort. Denies SOB/ dyspnea. Denies chest pain, palpitations, headaches, dizziness. Denies fevers, chills, n/v/d. Denies dysuria. Objective Vitals Vital Signs Date Time Temp Pulse Resp B/P (MAP) Pulse Ox O2 Delivery O2 Flow Rate FiO2 08/17/17 05:14 98.3 107 16 149/76 (100) 08/16/17 18:02 98.0 90 19 128/72 (90) 97 I/O 08/16/17 08/16/17 08/16/17 08/17/17 08/17/17 08/17/17 07:00 15:00 23:00 07:00 15:00 23:00 Intake Total 1890 ml 240 ml 3232 ml Balance 1890 ml 240 ml 3232 ml Intake Oral 240 ml 240 ml 120 ml IV Total 1650 ml 3112 ml # Voids 2 6 1 # Bowel Movements 1 Result Diagram: 08/16/17 1100 08/17/17 0521 Imaging Last Impressions Knee X-Ray 08/15/17 0000 Signed Impressions: Service Date/Time: Tuesday, August 15, 2017 15:45 - CONCLUSION: Mild changes of pyrophosphate arthropathy. No acute bony findings Lobo Cuba MD Foot X-Ray 08/15/17 0000 Signed Impressions: Service Date/Time: Tuesday, August 15, 2017 15:47 - CONCLUSION: Unremarkable limited examination of the left foot. Lobo Cuba MD Chest X-Ray 08/14/17 1241 Signed Impressions: Service Date/Time: Monday, August 14, 2017 13:02 - CONCLUSION: 1. No acute cardiopulmonary disease. Demar Knowles MD Objective Remarks GENERAL: This is an obese, well-developed patient, in no apparent distress. SKIN: Warm and dry. HEENT: Normocephalic. Pupils equal round and reactive. Nose without bleeding. Airway patent. NECK: Trachea midline. No JVD. Supple. CARDIOVASCULAR: Regular rate and rhythm without murmurs, gallops, or rubs. RESPIRATORY: Clear to auscultation. Breath sounds equal bilaterally. No wheezes , rales, or rhonchi. GASTROINTESTINAL: Abdomen soft, non-tender, nondistended. Bowel Sounds normoactive x4. MUSCULOSKELETAL: Extremities without clubbing,cyanosis. Ecchymotic area left foot with trace edema, able to wiggle toes. Bilateral pulses palpable +2. NEUROLOGICAL: Awake and alert. Oriented to person, place. Moves all extremities. Normal speech. A/P Problem List: (1) Brief psychotic disorder ICD Code: F23 - Brief psychotic disorder (2) Rhabdomyolysis ICD Code: M62.82 - Rhabdomyolysis (3) MERA (acute kidney injury) ICD Code: N17.9 - Acute kidney failure, unspecified (4) HTN (hypertension) ICD Code: I10 - Essential (primary) hypertension Assessment and Plan Ms. Loyola is a pleasant 61 year old female with a history of PTSD, possibly HTN as well who was Grijalva acted due to confusion, anxiety, probably suicidal ideations. Hospitalist service was consulted for medical management. - Brief psychotic disorder - Possibly paranoid schizophrenia - Patient has visual hallucinations. Improved - Management per psychiatry. Mild rhabdomyolysis Probable Urinary tract infection Acute kidney injury - Total CK 673, Creatinine 1.58, baseline unknown, UA shows evidence of UTI. - IV access. Normal saline @ 150cc/hour. Discontinue. Improving CK. - Ceftriaxone 1g Q24hrs. - UA positive for gram-negative pending culture sensitivity - Continue antibiotic for now. Hypertension - BP in the 170s systolic. Tachycardia 100- 120s - Nifedipine 30mg Qday and Clonidine 0.1mg PRN. - Restart metoprolol 12.5 mg twice a day ( home medication dose for trouble 50 mg twice a day) Hypothyroidism - Restart home medication levothyroxine 100 g - Recheck TSH in outpatient setting 6-8 weeks Vitamin D deficiency - Start vitamin D 50,000 every weekly - Recheck vitamin D levels in 3 months in outpatient ASCVD 10 year Risk 7.7%, LDL 117 - Hemoglobin A1c 3.5 - Lifestyle changes including exercise, dietary changes, weight loss, BP lowering agents - Unable to start statin secondary to liver enzymes being elevated and Chronic Hep C - May use niacin, gemfibrozil Hypokalemia - Potassium replacement - Check Magnesium Full code. Ambulation. Discuss with patient, nursing, Dr, Aleyda Guoalo-Briganti,Iszenn REFRIGERATION REPAIR SUPERVISOR Aug 17, 2017 08:22
[2017-08-17] MEDS: METOPROLOL TARTRATE 25 MG TAB PO SCH ×2 (08:57→20:36)
[2017-08-17] MEDS: NIFEdipine 30 MG SUSTAINED RELEASE TAB PO SCH (08:57)
[2017-08-17] MEDS: QUEtiapine FUMARATE 25 MG TAB PO SCH ×2 (08:57→20:35)
[2017-08-17] MEDS ORDERED: POTASSIUM CHLORIDE 20 MEQ CONTROLLED RELEASE TAB PO ONE (09:00)
[2017-08-17] MEDS: LEVOTHYROXINE SODIUM 100 MCG TAB PO SCH (09:00)
[2017-08-17 10:06] LABS: ALKALINE PHOSPHATASE 57 U/L (45-117); ALT (GPT) 57 U/L (10-53); AST (GOT) 47 U/L (15-37); CREATINE KINASE 140 U/L (26-192); INDIRECT BILIRUBIN 0.4 MG/DL (0.0-0.8); MAGNESIUM 2.4 MG/DL (1.5-2.5); TOTAL BILIRUBIN ADULT 0.6 MG/DL (0.2-1.0)
[2017-08-17 10:26] LABS: CKMB 4.7 NG/ML (0.5-3.6)
[2017-08-17 12:30] VITALS: BP 135/74; PULSE 91; RESP 16; TEMP 98; O2SAT 95
--- NOTE | 2017-08-17 15:18 | HHI.PYPN ---
Subjective Remarks Patient was seen today for psychiatric reevaluation, patient continues to be suspicious, guarded, looking around, stating that there are some animals and bugs crawling in the peña. She seems to be calmer, more cooperative and less confused. He is oriented 3, she could remember me from yesterday. She reports good mood. Patient seems to have improved insight about the unreal nature of visual hallucinations. She reports good sleep, improved appetite, but poor level of concentration. She denies suicidal and homicidal ideation, she denies visual and auditory hallucinations. As per nurses patient has been episodically agitated and very confused. Mental Status Examination Appearance: Appropriate Consciousness: Alert Orientation: Person, Place Motor Activity: Normal gait Speech: Unremarkable Language: Adequate Fund of Knowledge: Adequate Memory: Impaired Mood: Irritable Affect: Irritable Thought Process & Associations: Loose associations Thought Content: Derealization, Other (paranoid delusions) Hallucination Type: Auditory, Visual Delusion Type: Paranoid Suicidal Ideation: No Suicidal Plan: No Suicidal Intention: No Homicidal Ideation: No Homicidal Plan: No Homicidal Intention: No Judgment: Adequate Results Labs Test 08/17/17 05:21 Blood Urea Nitrogen 5 MG/DL Creatinine 0.75 MG/DL Random Glucose 102 MG/DL Calcium Level 9.7 MG/DL Sodium Level 145 MEQ/L Potassium Level 3.4 MEQ/L Chloride Level 113 MEQ/L Carbon Dioxide Level 24.3 MEQ/L Anion Gap 8 MEQ/L Estimat Glomerular Filtration Rate 78 ML/MIN Magnesium Level 2.4 MG/DL Total Bilirubin 0.6 MG/DL Direct Bilirubin 0.2 MG/DL Indirect Bilirubin 0.4 MG/DL Aspartate Amino Transf (AST/SGOT) 47 U/L Alanine Aminotransferase (ALT/SGPT) 57 U/L Alkaline Phosphatase 57 U/L Total Creatine Kinase 140 U/L Creatine Kinase MB 4.7 NG/ML Total Protein 6.1 GM/DL Albumin 3.0 GM/DL Date/Time Source Procedure Growth Status 08/14/17 13:08 Urine Clean Catch Urine Culture - Final Escherichia Coli Complete Vitals/IOs Vital Signs Date Time Temp Pulse Resp B/P (MAP) Pulse Ox O2 Delivery O2 Flow Rate FiO2 08/17/17 12:30 98.0 91 16 135/74 (94) 95 08/15/17 15:06 Room Air Intake and Output 08/17/17 08/17/17 08/18/17 08:00 16:00 00:00 Intake Total 720 ml Balance 720 ml Assessment & Plan Problem List: (1) Brief psychotic disorder ICD Codes: F23 - Brief psychotic disorder Assessment & Plan Estimated LOS: days Justification for Cont. Inpt. Patient continues to be acutely psychotic, paranoid, suspicious and having visual hallucinations. We will increase Seroquel to 50 mg twice a day. Finesse Titus MD Aug 17, 2017 15:18
[2017-08-17] MEDS: cefTRIAXone INJ 1,000 MG in SODIUM CHLORIDE 0.9% INJ 100 ML IV SCH (17:00)
--- NOTE | 2017-08-17 17:06 | PD.PSY.CON ---
Provisional Diagnosis Admission Date Aug 15, 2017 at 11:54 [place]. Brief psychotic disorder History of Present Illness Service Psychiatry Consult Requested By Dr. Finesse Titus Reason for Consult Second opinion Primary Care Physician Unknown HPI 61-year-old female, poor historian, brought in by law enforcement for suicidal ideation. Patient was apparently stopped by law enforcement and found to be behaving strangely, with anxiety, tearfulness, jittery, stating she had lost all members of her family in the last 7 years, including her son. She reportedly wanted to join her son and told the officers that she was hearing voices. Upon interview, patient is unable to provide any cogent history. She returned. Yasmany talks about someone named Dalton and the family taking things from her. She demonstrates significant looseness of associations that borders on word salad. She is obviously responding to internal stimuli. She exhibits thought blocking. She has ideas of reference. She feels paranoid and that she states the hospital staff are trying to control her and ruined her life. She is unable to answer questions directly and provides nonsensical responses, tangential responses and circumstantial responses. She does admit to ongoing auditory hallucinations. She also admits to suicidal ideation. She does not have a plan as to how she would kill herself, but obviously driving a car in this psychotic state is dangerous to herself and others. 08/17/17 - Patient seen for second opinion, found lying on hospital bed calm and cooperative with interview. Patient states that she had come to the hospital because she became confused and had gotten lost trying to get back home. She states having stopped her car and asked the police for help which she was then taken to the hospital. She mentions that she was on a different floor of the hospital for a urinary tract infection and transferred here. She reports that she was experiencing seeing "bugs on the peña" and hearing the voice of her boyfriend and family members in the hallways. She denies any previous psychiatric history, only having been prescribed an antidepressant and clonazepam. She states feeling confused and was perseverative on why her boyfriend had not looked for her or tried to make contact with her since her admission. Past Family Social History Coded Allergies: carbamazepine (Verified Allergy, Severe, 08/14/17) levofloxacin (Verified Allergy, Severe, 08/14/17) Active Scripts Sulfamethoxazole-Trimethoprim (Bactrim DS) 800-160 Mg Tab, 1 TAB PO BID for Infection, #14 TAB 0 Refills Prov:Yaya Hsieh MD 08/15/17 Reported Medications Albuterol 8.5 GM Inh (Proair Hfa 8.5 GM Inh) 90 Mcg/Act Aer, 1 PUFF INH Q4-6H Y for SHORTNESS OF BREATH, #1 INHALER 0 Refills 108 mcg/actuation 08/14/17 Tramadol (Tramadol) 50 Mg Tab, 50-100 MG PO Q4-6H Y for PAIN, TAB 0 Refills 08/14/17 Metoprolol Tartrate (Metoprolol Tartrate) 50 Mg Tab, 50 MG PO Q6HR, #30 TAB 0 Refills 08/14/17 Levothyroxine (Synthroid) 100 Mcg Tab, 100 MCG PO DAILY for Thyroid, #30 TAB 0 Refills 08/14/17 Escitalopram (Lexapro) 10 Mg Tab, 10 MG PO DAILY, #30 TAB 0 Refills 08/14/17 Clonazepam (Clonazepam) 0.5 Mg Tab, 0.5 MG PO BID, #60 TAB 0 Refills 08/14/17 Zolpidem (Ambien) 10 Mg Tab, 10 MG PO HS, TAB 0 Refills 08/14/17 Current Medications Medications (Trade) Dose Ordered Sig/Yuan Route Start Time Stop Time Status Last Admin (Ativan) 1 mg Q6H PRN PO 08/15/17 12:00 08/15/17 20:53 (Ativan Inj) 1 mg Q6H PRN IM 08/15/17 12:00 08/16/17 02:52 (Benadryl) 50 mg Q6H PRN PO 08/15/17 12:00 (Benadryl Inj) 50 mg Q6H PRN IM 08/15/17 12:00 (Tylenol) 650 mg Q4H PRN PO 08/15/17 12:00 (Milk Of Magnesia Liq) 30 ml DAILY PRN PO 08/15/17 12:00 (Mag-Al Plus Susp Liq) 30 ml Q6H PRN PO 08/15/17 12:00 Ceftriaxone Sodium 1000 mg/ Sodium Chloride 100 ml @ 200 mls/hr Q24H IV 08/15/17 17:00 08/16/17 16:05 (Procardia Xl) 30 mg DAILY PO 08/15/17 19:00 08/17/17 08:57 (Catapres) 0.1 mg Q6H PRN PO 08/15/17 18:30 08/15/17 18:30 (Drisdol) 50,000 units Q7D PO 08/16/17 14:00 (Romazicon Inj) 0.2 mg Q1M PRN IV PUSH 08/16/17 13:45 (Ativan) 1 mg Q4H PRN PO 08/16/17 13:45 (Ativan Inj) 1 mg Q4H PRN IV PUSH 08/16/17 13:45 (Ativan) 2 mg Q2H PRN PO 08/16/17 13:45 08/16/17 14:01 (Ativan Inj) 2 mg Q2H PRN IV PUSH 08/16/17 13:45 (Ativan Inj) 2 mg Q1H PRN IV PUSH 08/16/17 13:45 (Ativan Inj) 2 mg Q15M PRN IV PUSH 08/16/17 13:45 (Synthroid) 100 mcg DAILY@0600 PO 08/17/17 09:00 (Lopressor) 12.5 mg Q12HR PO 08/17/17 09:00 08/17/17 08:57 (Pill Splitter) 1 ea UNSCH PRN OTHER 08/17/17 08:00 (SEROquel) 50 mg BID PO 08/17/17 21:00 Patient's Strengths (min. 2) Resilient and has access to healthcare. Physical Exam Vital Signs Vital Signs Date Time Temp Pulse Resp B/P (MAP) Pulse Ox O2 Delivery O2 Flow Rate FiO2 08/17/17 12:30 98.0 91 16 135/74 (94) 95 08/15/17 15:06 Room Air I/O 08/17/17 08/17/17 08/18/17 08:00 16:00 00:00 Intake Total 720 ml Balance 720 ml Lab Results Test 08/17/17 05:21 Blood Urea Nitrogen 5 MG/DL Creatinine 0.75 MG/DL Random Glucose 102 MG/DL Calcium Level 9.7 MG/DL Sodium Level 145 MEQ/L Potassium Level 3.4 MEQ/L Chloride Level 113 MEQ/L Carbon Dioxide Level 24.3 MEQ/L Anion Gap 8 MEQ/L Estimat Glomerular Filtration Rate 78 ML/MIN Magnesium Level 2.4 MG/DL Total Bilirubin 0.6 MG/DL Direct Bilirubin 0.2 MG/DL Indirect Bilirubin 0.4 MG/DL Aspartate Amino Transf (AST/SGOT) 47 U/L Alanine Aminotransferase (ALT/SGPT) 57 U/L Alkaline Phosphatase 57 U/L Total Creatine Kinase 140 U/L Creatine Kinase MB 4.7 NG/ML Total Protein 6.1 GM/DL Albumin 3.0 GM/DL Date/Time Source Procedure Growth Status 08/14/17 13:08 Urine Clean Catch Urine Culture - Final Escherichia Coli Complete Mental Status Examination Appearance: Appropriate Consciousness: Alert Orientation: Person, Place Motor Activity: Normal gait Speech: Unremarkable Language: Adequate Fund of Knowledge: Adequate Memory: Impaired Mood: Sad Affect: Sad Thought Process & Associations: Loose associations Thought Content: Derealization, Other (paranoid delusions) Hallucination Type: Auditory (voices of her boyfriend or family members), Visual (bugs on the peña) Delusion Type: Paranoid Suicidal Ideation: No Suicidal Plan: No Suicidal Intention: No Homicidal Ideation: No Homicidal Plan: No Homicidal Intention: No Insight: Poor Judgment: Impulsive Assessment & Plan Problem List: (1) Brief psychotic disorder ICD Codes: F23 - Brief psychotic disorder Assessment & Plan Patient seen for second opinion. I have seen and examined this patient, reviewed the documentation, discussed personally with Dr. Titus, and I agree and concur with his assessment and plan. Ajay Jiménez MD Aug 17, 2017 17:06
[2017-08-17 18:59] VITALS: BP 146/67; PULSE 89; RESP 18; TEMP 98.2; O2SAT 95
[2017-08-18 04:56] VITALS: BP 144/66; PULSE 83; RESP 16; TEMP 98.6; O2SAT 97
[2017-08-18] MEDS: LEVOTHYROXINE SODIUM 100 MCG TAB PO SCH (06:00)
--- NOTE | 2017-08-18 08:46 | HHI.PR ---
Subjective Remarks Follow up visit rhabdomyolysis, UTI, PTSD, HTN, hypothyroidism, Hep C. Patient seen and examined today. Patient seen laying in bed. States she is doing well. Requesting to go home. Denies pain and discomfort. Denies SOB/ dyspnea. Denies chest pain, palpitations, headaches, dizziness. Denies fevers, chills, n/ v/d. Denies hematuria, dysuria. Objective Vitals Vital Signs Date Time Temp Pulse Resp B/P (MAP) Pulse Ox O2 Delivery O2 Flow Rate FiO2 08/18/17 04:56 98.6 83 16 144/66 (92) 97 08/17/17 18:59 98.2 89 18 146/67 (93) 95 08/17/17 12:30 98.0 91 16 135/74 (94) 95 I/O 08/17/17 08/17/17 08/17/17 08/18/17 08/18/17 08/18/17 07:00 15:00 23:00 07:00 15:00 23:00 Intake Total 720 ml 360 ml 340 ml Balance 720 ml 360 ml 340 ml Intake Oral 720 ml 360 ml 240 ml IV Total 100 ml # Voids 1 1 1 Result Diagram: 08/16/17 1100 08/17/17 0521 Imaging Last Impressions Knee X-Ray 08/15/17 0000 Signed Impressions: Service Date/Time: Tuesday, August 15, 2017 15:45 - CONCLUSION: Mild changes of pyrophosphate arthropathy. No acute bony findings Lobo Cuba MD Foot X-Ray 08/15/17 0000 Signed Impressions: Service Date/Time: Tuesday, August 15, 2017 15:47 - CONCLUSION: Unremarkable limited examination of the left foot. Lobo Cuba MD Chest X-Ray 08/14/17 1241 Signed Impressions: Service Date/Time: Monday, August 14, 2017 13:02 - CONCLUSION: 1. No acute cardiopulmonary disease. Demar Knowles MD Objective Remarks GENERAL: This is an obese, well-developed patient, in no apparent distress. SKIN: Warm and dry. HEENT: Normocephalic. Pupils equal round and reactive. Nose without bleeding. Airway patent. NECK: Trachea midline. No JVD. Supple. CARDIOVASCULAR: Regular rate and rhythm without murmurs, gallops, or rubs. RESPIRATORY: Clear to auscultation. Breath sounds equal bilaterally. No wheezes , rales, or rhonchi. GASTROINTESTINAL: Abdomen soft, non-tender, nondistended. Bowel Sounds normoactive x4. MUSCULOSKELETAL: Extremities without clubbing,cyanosis. Ecchymotic area left foot with trace edema, able to wiggle toes. Bilateral pulses palpable +2. NEUROLOGICAL: Awake and alert. Oriented to person, place. Moves all extremities. Normal speech. A/P Problem List: (1) Brief psychotic disorder ICD Code: F23 - Brief psychotic disorder (2) Rhabdomyolysis ICD Code: M62.82 - Rhabdomyolysis (3) MERA (acute kidney injury) ICD Code: N17.9 - Acute kidney failure, unspecified (4) HTN (hypertension) ICD Code: I10 - Essential (primary) hypertension Assessment and Plan Ms. Loyola is a pleasant 61 year old female with a history of PTSD, possibly HTN as well who was Grijalva acted due to confusion, anxiety, probably suicidal ideations. Hospitalist service was consulted for medical management. - Brief psychotic disorder - Possibly paranoid schizophrenia - Patient has visual hallucinations. Improved. - Management per psychiatry. Mild rhabdomyolysis Probable Urinary tract infection Acute kidney injury - Total CK 673, Creatinine 1.58, baseline unknown, UA shows evidence of UTI. - IV access. Normal saline @ 150cc/hour. Discontinue. Improving CK. - Ceftriaxone 1g Q24hrs. - UA positive for Escherichia coli, pansensitive. - If patient is to go home today, can go without antibiotic. Received x3 doses to date. Hypertension - BP in the 170s systolic. Tachycardia 100- 120s - improving - Nifedipine 30mg Qday and Clonidine 0.1mg PRN. - Restart metoprolol 12.5 mg twice a day ( home medication dose for metoprolol 50 mg twice a day). Increase metoprolol 25mg BID. Hypothyroidism - Restart home medication levothyroxine 100 g - Recheck TSH in outpatient setting 6-8 weeks Vitamin D deficiency - Start vitamin D 50,000 every weekly - Recheck vitamin D levels in 3 months in outpatient ASCVD 10 year Risk 7.7%, LDL 117 - Hemoglobin A1c 3.5 - Lifestyle changes including exercise, dietary changes, weight loss, BP lowering agents - Unable to start statin secondary to liver enzymes being elevated and Chronic Hep C - May use niacin, gemfibrozil Hypokalemia - Potassium replacement - Magnesium 2.4 Full code. Ambulation. Discuss with patient, nursing, Dr, Helen Zuniga Aug 18, 2017 08:46
[2017-08-18] MEDS: METOPROLOL TARTRATE 25 MG TAB PO SCH ×2 (09:00→20:35)
[2017-08-18] MEDS: NIFEdipine 30 MG SUSTAINED RELEASE TAB PO SCH (09:14)
[2017-08-18] MEDS: QUEtiapine FUMARATE 25 MG TAB PO SCH ×2 (09:14→20:35)
[2017-08-18] MEDS: LORazepam 1 MG TAB PO PRN (13:11)
--- NOTE | 2017-08-18 15:27 | RADRPT ---
EXAM DATE/TIME: 08/18/2017 15:10 [facility] COMPARISON: No previous studies available for comparison. INDICATIONS : Pain due to fall. MEDICAL HISTORY : None. SURGICAL HISTORY : None. ENCOUNTER: Initial ACUITY: 4 - 6 days PAIN SCORE: 7/10 LOCATION: Left hip FINDINGS: Examination of the left hip was performed with AP Pelvis. The primary and secondary trabecular patte rn of the femoral neck is intact. The hip joint is of normal width without significant sclerosis or bony hypertrophy. The acetabulum is grossly intact. CONCLUSION: Unremarkable examination of the left hip. Lobo Cuba MD on August 18, 2017 at 15:24 Board Certified Radiologist. This report was verified electronically.
[2017-08-18] MEDS: cefTRIAXone INJ 1,000 MG in SODIUM CHLORIDE 0.9% INJ 100 ML IV SCH (17:00)
[2017-08-18 18:00] VITALS: PULSE 79; RESP 16; TEMP 97.9; O2SAT 97
--- NOTE | 2017-08-18 18:48 | HHI.PYPN ---
Subjective Remarks Patient seen today in her room with nurse, chart review, patient compliant medications. Denies suicidality homicidality. Today stating she does not see bugs in her room. She is pleasant with me if fair eye contact Review of Systems Except as stated in HPI: all other systems reviewed are Neg Mental Status Examination Appearance: Appropriate Consciousness: Alert Orientation: Person, Place Motor Activity: Normal gait Speech: Unremarkable Language: Adequate Fund of Knowledge: Adequate Memory: Impaired Mood: Sad Affect: Sad Thought Process & Associations: Loose associations Thought Content: Derealization, Other (paranoid delusions) Hallucination Type: Auditory (voices of her boyfriend or family members), Visual (bugs on the peña) Delusion Type: Paranoid Suicidal Ideation: No Suicidal Plan: No Suicidal Intention: No Homicidal Ideation: No Homicidal Plan: No Homicidal Intention: No Insight: Poor Judgment: Impulsive Results Labs Date/Time Source Procedure Growth Status 08/14/17 13:08 Urine Clean Catch Urine Culture - Final Escherichia Coli Complete Vitals/IOs Vital Signs Date Time Temp Pulse Resp B/P (MAP) Pulse Ox O2 Delivery O2 Flow Rate FiO2 08/18/17 18:00 97.9 79 16 97 08/18/17 04:56 144/66 (92) 08/15/17 15:06 Room Air Intake and Output 08/18/17 08/18/17 08/19/17 08:00 16:00 00:00 Intake Total 460 ml 960 ml Balance 460 ml 960 ml Assessment & Plan Problem List: (1) Brief psychotic disorder ICD Codes: F23 - Brief psychotic disorder Assessment & Plan Estimated LOS: days patient psychosis seems to be softening, compliant medications. For now continue treatment Justification for Cont. Inpt. At this time patient decompensated placed in the lower level of care Discharge Planning Patient remained psychotic difficult to ascertain appropriate placement at this time Lobo Barboza MD Aug 18, 2017 18:48
[2017-08-19] MEDS: LEVOTHYROXINE SODIUM 100 MCG TAB PO SCH (06:00)
[2017-08-19 06:04] VITALS: BP 124/75; PULSE 75; RESP 18; TEMP 97.1; O2SAT 96
--- NOTE | 2017-08-19 08:17 | HHI.PR ---
Subjective Remarks Follow up visit rhabdomyolysis, UTI, PTSD, HTN, hypothyroidism, Hep C. Patient seen and examined today. Patient seen laying in bed. Patient was complaining of left hip pain yesterday. States pain is improved now. States she is ambulating around and getting out of bed. Reports mild constipation but does not want to get laxatives instead is opting for stool softener. Denies SOB/ dyspnea. Denies chest pain, palpitations, headaches, dizziness. Denies fevers, chills, n/v/d. Denies hematuria, dysuria. Objective Vitals Vital Signs Date Time Temp Pulse Resp B/P (MAP) Pulse Ox O2 Delivery O2 Flow Rate FiO2 08/19/17 06:04 97.1 75 18 124/75 (91) 96 08/18/17 18:00 97.9 79 16 97 I/O 08/18/17 08/18/17 08/18/17 08/19/17 08/19/17 08/19/17 07:00 15:00 23:00 07:00 15:00 23:00 Intake Total 340 ml 120 ml 1080 ml Balance 340 ml 120 ml 1080 ml Intake Oral 240 ml 120 ml 1080 ml IV Total 100 ml # Voids 1 1 0 Result Diagram: 08/16/17 1100 08/17/17 0521 Imaging Last Impressions Hip and Pelvis X-Ray 08/18/17 0000 Signed Impressions: Service Date/Time: Friday, August 18, 2017 15:10 - CONCLUSION: Unremarkable examination of the left hip. Lobo Cuba MD Knee X-Ray 08/15/17 0000 Signed Impressions: Service Date/Time: Tuesday, August 15, 2017 15:45 - CONCLUSION: Mild changes of pyrophosphate arthropathy. No acute bony findings Lobo Cuba MD Foot X-Ray 08/15/17 0000 Signed Impressions: Service Date/Time: Tuesday, August 15, 2017 15:47 - CONCLUSION: Unremarkable limited examination of the left foot. Lobo Cuba MD Chest X-Ray 08/14/17 1241 Signed Impressions: Service Date/Time: Monday, August 14, 2017 13:02 - CONCLUSION: 1. No acute cardiopulmonary disease. Demar Knowles MD Objective Remarks GENERAL: This is an obese, well-developed patient, in no apparent distress. SKIN: Warm and dry. HEENT: Normocephalic. Pupils equal round and reactive. Nose without bleeding. Airway patent. NECK: Trachea midline. No JVD. Supple. CARDIOVASCULAR: Regular rate and rhythm without murmurs, gallops, or rubs. RESPIRATORY: Clear to auscultation. Breath sounds equal bilaterally. No wheezes , rales, or rhonchi. GASTROINTESTINAL: Abdomen soft, non-tender, nondistended. Bowel Sounds normoactive x4. MUSCULOSKELETAL: Extremities without clubbing,cyanosis. Ecchymotic area left foot with trace edema, able to wiggle toes. Bilateral pulses palpable +2. NEUROLOGICAL: Awake and alert. Oriented to person, place. Moves all extremities. Normal speech. A/P Problem List: (1) Brief psychotic disorder ICD Code: F23 - Brief psychotic disorder (2) Rhabdomyolysis ICD Code: M62.82 - Rhabdomyolysis (3) MERA (acute kidney injury) ICD Code: N17.9 - Acute kidney failure, unspecified (4) HTN (hypertension) ICD Code: I10 - Essential (primary) hypertension Assessment and Plan Ms. Loyola is a pleasant 61 year old female with a history of PTSD, possibly HTN as well who was Grijalva acted due to confusion, anxiety, probably suicidal ideations. Hospitalist service was consulted for medical management. - Brief psychotic disorder - Possibly paranoid schizophrenia - Patient has visual hallucinations. Improved. - Management per psychiatry. Left Hip PAin - hip xray unremarkable examination of the left hip. - Patient able to ambulate. Continue with physical therapy while inpatient - Reports hip pain has improved. Mild rhabdomyolysis Probable Urinary tract infection Acute kidney injury - Total CK 673, Creatinine 1.58, baseline unknown, UA shows evidence of UTI. - IV access. Normal saline @ 150cc/hour. Discontinue. Improving CK. - Ceftriaxone 1g Q24hrs, complete 08/19/17 - UA positive for Escherichia coli, pansensitive. Hypertension - BP in the 170s systolic. Tachycardia 100- 120s - improving - Nifedipine 30mg Qday and Clonidine 0.1mg PRN. - Restart metoprolol 12.5 mg twice a day ( home medication dose for metoprolol 50 mg twice a day). Increase metoprolol 25mg BID. Hypothyroidism - Restart home medication levothyroxine 100 g - Recheck TSH in outpatient setting 6-8 weeks Vitamin D deficiency - Start vitamin D 50,000 every weekly - Recheck vitamin D levels in 3 months in outpatient ASCVD 10 year Risk 7.7%, LDL 117 - Hemoglobin A1c 3.5 - Lifestyle changes including exercise, dietary changes, weight loss, BP lowering agents - Unable to start statin secondary to liver enzymes being elevated and Chronic Hep C - May use niacin, gemfibrozil Hypokalemia - Potassium replacement - Magnesium 2.4 Full code. Ambulation. Discuss with patient, nursing, Dr, Helen Zuniga Aug 19, 2017 08:06
[2017-08-19] MEDS: METOPROLOL TARTRATE 25 MG TAB PO SCH ×2 (08:42→20:14)
[2017-08-19] MEDS: QUEtiapine FUMARATE 25 MG TAB PO SCH ×2 (08:42→20:14)
[2017-08-19] MEDS: NIFEdipine 30 MG SUSTAINED RELEASE TAB PO SCH (08:42)
--- NOTE | 2017-08-19 10:25 | HHI.PYPN ---
Subjective Remarks Patient seen in room with nurse, chart review, patient compliant medications. Patient today is calm pleasant denies suicidality but acknowledges some vague persistent auditory hallucinations which remains somewhat confused but better than yesterday Review of Systems Except as stated in HPI: all other systems reviewed are Neg Mental Status Examination Appearance: Appropriate Consciousness: Alert Orientation: Person, Place Motor Activity: Normal gait Speech: Unremarkable Language: Adequate Fund of Knowledge: Adequate Memory: Impaired Mood: Sad Affect: Sad Thought Process & Associations: Loose associations Thought Content: Derealization, Other (paranoid delusions) Hallucination Type: Auditory (voices of her boyfriend or family members), Visual (bugs on the peña) Delusion Type: Paranoid Suicidal Ideation: No Suicidal Plan: No Suicidal Intention: No Homicidal Ideation: No Homicidal Plan: No Homicidal Intention: No Insight: Poor Judgment: Impulsive Results Labs Date/Time Source Procedure Growth Status 08/14/17 13:08 Urine Clean Catch Urine Culture - Final Escherichia Coli Complete Vitals/IOs Vital Signs Date Time Temp Pulse Resp B/P (MAP) Pulse Ox O2 Delivery O2 Flow Rate FiO2 08/19/17 06:04 97.1 75 18 124/75 (91) 96 08/15/17 15:06 Room Air Intake and Output 08/19/17 08/19/17 08/20/17 08:00 16:00 00:00 Intake Total 240 ml Balance 240 ml Assessment & Plan Problem List: (1) Brief psychotic disorder ICD Codes: F23 - Brief psychotic disorder Assessment & Plan Estimated LOS: days patient continues with some vague auditory hallucinations though somewhat softer than yesterday, compliant medications. Justification for Cont. Inpt. At this time patient will decompensate placed in a lower level of care Discharge Planning Patient does wish to return to her home situation wasn't she stabilized Lobo Barboza MD Aug 19, 2017 10:25
[2017-08-19 10:38] LABS: HEMATOCRIT 39.2 % (35.0-46.0); MEAN CELL VOLUME 96.5 FL (80.0-100.0); MEAN CORPUSCULAR HEMOGLOBIN 30.1 PG (27.0-34.0); MEAN CORPUSCULAR HGB CONC 31.2 % (32.0-36.0); PLATELET COUNT 140 TH/MM3 (150-450); RED BLOOD COUNT 4.06 MIL/MM3 (4.00-5.30); RED CELL DISTRIBUTION WIDTH 13.1 % (11.6-17.2); REVIEW FLAG FINAL; WHITE BLOOD COUNT 3.5 TH/MM3 (4.0-11.0)
[2017-08-19 11:02] LABS: BICARBONATE 27.1 MEQ/L (21.0-32.0); POTASSIUM 3.8 MEQ/L (3.5-5.1)
[2017-08-19] MEDS: LORazepam 1 MG TAB PO PRN ×2 (14:56→23:20)
[2017-08-19] MEDS: cefTRIAXone INJ 1,000 MG in SODIUM CHLORIDE 0.9% INJ 100 ML IV SCH (17:00)
[2017-08-19 18:00] VITALS: BP 147/66; PULSE 78; RESP 18; TEMP 97.9; O2SAT 98
[2017-08-20 04:19] VITALS: BP 126/72; PULSE 73; RESP 16; TEMP 97.7; O2SAT 97
[2017-08-20] MEDS: LEVOTHYROXINE SODIUM 100 MCG TAB PO SCH (06:00)
[2017-08-20] MEDS ORDERED: NIFE30TA8 PO (07:44)
[2017-08-20] MEDS ORDERED: METO25TA3 PO (07:44)
[2017-08-20] MEDS ORDERED: ERGO1CAP30 PO (07:44)
--- NOTE | 2017-08-20 08:11 | HHI.PR ---
Subjective Remarks Follow up visit rhabdomyolysis, UTI, PTSD, HTN, hypothyroidism, Hep C. Patient seen and examined today. Patient is very upset. States she wants to go home but they are holding her down. Tearful. Does not want to be examined or bothered. Objective Vitals Vital Signs Date Time Temp Pulse Resp B/P (MAP) Pulse Ox O2 Delivery O2 Flow Rate FiO2 08/20/17 04:19 97.7 73 16 126/72 (90) 97 08/19/17 18:00 97.9 78 18 147/66 (93) 98 I/O 08/19/17 08/19/17 08/19/17 08/20/17 08/20/17 08/20/17 06:59 14:59 22:59 06:59 14:59 22:59 Intake Total 1000 ml 360 ml 120 ml Output Total 3 ml Balance 1000 ml 357 ml 120 ml Intake Oral 1000 ml 360 ml 120 ml Output Urine Total 3 ml # Voids 0 3 # Bowel Movements 1 Result Diagram: 08/19/17 1001 08/19/17 0951 Objective Remarks GENERAL: This is an obese, well-developed patient, in no apparent distress. HEENT: Normocephalic. Pupils equal round and reactive. Nose without bleeding. Airway patent. NECK: Trachea midline. MUSCULOSKELETAL: Extremities without clubbing,cyanosis. Ecchymotic area left foot with trace edema, able to wiggle toes. Bilateral pulses palpable +2. NEUROLOGICAL: Awake and alert. Tearful. Upset. Oriented to person, place. Moves all extremities. Normal speech. A/P Problem List: (1) Brief psychotic disorder ICD Code: F23 - Brief psychotic disorder (2) Rhabdomyolysis ICD Code: M62.82 - Rhabdomyolysis (3) MERA (acute kidney injury) ICD Code: N17.9 - Acute kidney failure, unspecified (4) HTN (hypertension) ICD Code: I10 - Essential (primary) hypertension Assessment and Plan Ms. Loyola is a pleasant 61 year old female with a history of PTSD, possibly HTN as well who was Grijalva acted due to confusion, anxiety, probably suicidal ideations. Hospitalist service was consulted for medical management. Brief psychotic disorder Possibly paranoid schizophrenia - Patient has visual hallucinations. Improved. - Management per psychiatry. Left Hip PAin - hip xray unremarkable examination of the left hip. - Patient able to ambulate. Continue with physical therapy while inpatient - Reports hip pain has improved. Mild rhabdomyolysis Probable Urinary tract infection Acute kidney injury - Total CK 673, Creatinine 1.58, baseline unknown, UA shows evidence of UTI. - IV access. Normal saline @ 150cc/hour. Discontinue. Improving CK. - Ceftriaxone 1g Q24hrs, completed 08/19/17 - UA positive for Escherichia coli, pansensitive. Hypertension - BP in the 170s systolic. Tachycardia 100- 120s - improving - Nifedipine 30mg Qday and Clonidine 0.1mg PRN. - metoprolol 25mg BID. - BP improved Hypothyroidism - Restart home medication levothyroxine 100 g - Recheck TSH in outpatient setting 6-8 weeks Vitamin D deficiency - Start vitamin D 50,000 every weekly - Recheck vitamin D levels in 3 months in outpatient ASCVD 10 year Risk 7.7%, LDL 117 - Hemoglobin A1c 3.5 - Lifestyle changes including exercise, dietary changes, weight loss, BP lowering agents - Unable to start statin secondary to liver enzymes being elevated and Chronic Hep C - May use niacin, gemfibrozil Hypokalemia - Potassium replacement - Magnesium 2.4 Full code. Ambulation. Discuss with patient, nursing, Aleyda Cohen from Hospitalist standpoint. May transfer to regular psychiatry unit or her discharge home. We will sign off. Reconsult as needed. Helen Mendez Aug 20, 2017 08:11
[2017-08-20] MEDS: NIFEdipine 30 MG SUSTAINED RELEASE TAB PO SCH (08:17)
[2017-08-20] MEDS: METOPROLOL TARTRATE 25 MG TAB PO SCH ×2 (08:17→20:51)
[2017-08-20] MEDS: QUEtiapine FUMARATE 25 MG TAB PO SCH (08:17)
[2017-08-20] MEDS: LORazepam 1 MG TAB PO PRN (08:18)
--- NOTE | 2017-08-20 08:39 | HHI.PYPN ---
Subjective Remarks Patient seen in coverage for Dr. Titus. Chart reviewed. Case discussed with nursing staff. On my examination today, the patient reports that she slept somewhat poorly overnight secondary to mild pruritus. Initially presents quite well, denying issues with mood, denying suicidal or homicidal ideation or other symptoms. However, as interview progresses she grows more paranoid. For example, she quizzes myself and the nurse about the circumstances of her presentation here. She says, "I know what happened. I just wanted to see your reaction." She says that she got into an argument with her sisters and they had her Grijal[place] Acted out of spite. Comes up to nursing station following interview tearful and dysphoric requesting phone. Denies side effects from medications. No physical complaints at this time. Chief Complaint: Psychosis Review of Systems ROS Limitations: Psychotic Except as stated in HPI: all other systems reviewed are Neg Mental Status Examination Appearance: Appropriate Consciousness: Alert Orientation: Person, Place, Date/Time Motor Activity: Other (No abnormal motor movements noted) Speech: Unremarkable Language: Adequate Fund of Knowledge: Adequate Attention and Concentration: Adequate Mood: Other (Denies issues) Affect: Labile (mild) Thought Process & Associations: Linear Thought Content: Other (paranoia) Hallucination Type: None (No AVH) Delusion Type: Paranoid Suicidal Ideation: No Suicidal Plan: No Suicidal Intention: No Homicidal Ideation: No Homicidal Plan: No Homicidal Intention: No Insight: Poor Judgment: Impulsive Mental Status Exam Remarks No visible rash Results Labs Test 08/19/17 09:51 08/19/17 10:01 Blood Urea Nitrogen 8 MG/DL Creatinine 0.81 MG/DL Random Glucose 122 MG/DL Calcium Level 9.1 MG/DL Sodium Level 143 MEQ/L Potassium Level 3.8 MEQ/L Chloride Level 107 MEQ/L Carbon Dioxide Level 27.1 MEQ/L Anion Gap 9 MEQ/L Estimat Glomerular Filtration Rate 71 ML/MIN White Blood Count 3.5 TH/MM3 Red Blood Count 4.06 MIL/MM3 Hemoglobin 12.2 GM/DL Hematocrit 39.2 % Mean Corpuscular Volume 96.5 FL Mean Corpuscular Hemoglobin 30.1 PG Mean Corpuscular Hemoglobin Concent 31.2 % Red Cell Distribution Width 13.1 % Platelet Count 140 TH/MM3 Mean Platelet Volume 10.6 FL Hematology Comments Date/Time Source Procedure Growth Status 08/14/17 13:08 Urine Clean Catch Urine Culture - Final Escherichia Coli Complete Labs reviewed. Vitals/IOs Vital Signs Date Time Temp Pulse Resp B/P (MAP) Pulse Ox O2 Delivery O2 Flow Rate FiO2 08/20/17 04:19 97.7 73 16 126/72 (90) 97 Intake and Output 08/20/17 08/20/17 08/21/17 08:00 16:00 00:00 Intake Total 120 ml Balance 120 ml Assessment & Plan Problem List: (1) Brief psychotic disorder ICD Codes: F23 - Brief psychotic disorder Assessment & Plan Titrate Seroquel to 50/75mg to target psychosis. Hospitalist input noted and appreciated. Continue to monitor on an inpatient unit. Continue other medications and care as ordered. Justification for Cont. Inpt. Impairment in reality construction. Medication changes. High risk for decompensation in less restrictive environment. Discharge Planning Per Raghavendra Tripathi MD Aug 20, 2017 08:39
[2017-08-20 16:00] VITALS: BP 114/73; PULSE 84; RESP 18; TEMP 98.2; O2SAT 95
[2017-08-20] MEDS ORDERED: QUEtiapine FUMARATE 25 MG TAB PO SCH (21:00)
[2017-08-21 04:37] VITALS: BP 104/55; PULSE 67; RESP 16; TEMP 98.3; O2SAT 97
[2017-08-21] MEDS: LEVOTHYROXINE SODIUM 100 MCG TAB PO SCH (06:00)
[2017-08-21] MEDS: METOPROLOL TARTRATE 25 MG TAB PO SCH (08:18)
[2017-08-21] MEDS: NIFEdipine 30 MG SUSTAINED RELEASE TAB PO SCH (08:18)
[2017-08-21] MEDS ORDERED: QUEtiapine FUMARATE 25 MG TAB PO SCH (09:00)
[2017-08-21] MEDS ORDERED: LEXA10TA PO (11:18)
[2017-08-21] MEDS ORDERED: METO50TA PO (11:18)
[2017-08-21] MEDS ORDERED: LEVO.1 PO (11:18)
[2017-08-21] MEDS ORDERED: QUET1TAB7 PO (11:18)
--- NOTE | 2017-08-21 11:26 | HHI.DS ---
Psychiatry Discharge Summary Inpatient Psychiatric care?: Yes Advance Directive: No Mental Health AdvanceDirective: No Health Care Proxy: No Admission Admission Date Aug 15, 2017 at 11:54 Admission Diagnosis: (1) Unspecified psychosis ICD Code: F29 - Unspecified psychosis not due to a substance or known physiological condition (2) Brief psychotic disorder ICD Code: F23 - Brief psychotic disorder Brief History 61-year-old female, poor historian, brought in by law enforcement for suicidal ideation. Patient was apparently stopped by law enforcement and found to be behaving strangely, with anxiety, tearfulness, jittery, stating she had lost all members of her family in the last 7 years, including her son. She reportedly wanted to join her son and told the officers that she was hearing voices. Upon interview, patient is unable to provide any cogent history. She returned. Yasmany talks about someone named Dalton and the family taking things from her. She demonstrates significant looseness of associations that borders on word salad. She is obviously responding to internal stimuli. She exhibits thought blocking. She has ideas of reference. She feels paranoid and that she states the hospital staff are trying to control her and ruined her life. She is unable to answer questions directly and provides nonsensical responses, tangential responses and circumstantial responses. She does admit to ongoing auditory hallucinations. She also admits to suicidal ideation. She does not have a plan as to how she would kill herself, but obviously driving a car in this psychotic state is dangerous to herself and others. 08/17/17 - Patient seen for second opinion, found lying on hospital bed calm and cooperative with interview. Patient states that she had come to the hospital because she became confused and had gotten lost trying to get back home. She states having stopped her car and asked the police for help which she was then taken to the hospital. She mentions that she was on a different floor of the hospital for a urinary tract infection and transferred here. She reports that she was experiencing seeing "bugs on the peña" and hearing the voice of her boyfriend and family members in the hallways. She denies any previous psychiatric history, only having been prescribed an antidepressant and clonazepam. She states feeling confused and was perseverative on why her boyfriend had not looked for her or tried to make contact with her since her admission. Tobacco Use In Past 30 Days: No Tobacco Past 30 Days Alcohol Use: Never Hospital Course Patient was admitted to the med psych unit initially due to psychosis. Psychiatric and psychosocial assessment performed. Safety measures taken. Initially patient was having visual hallucinations, disorganized speech, prominent paranoia and delusions of persecution. Patient was started in Seroquel 25 mg, Seroquel was increased to 125 mg daily. She responded positively to medications and therapy and group activities. Patient also was treated by medical team for underlying medical conditions. No agitation, no aggressive behavior, no hostility presented by the patient in the unit. Patient participated and interacted appropriately with staff and peers in the unit. She was compliant with medications,medical side effects. At the time of discharge patient seems to be at baseline, she denies depression, she denies anxiety, she denies john and psychosis. Results Blood Pressure 104 / 55 Vital Signs Date Time Temp Pulse Resp B/P (MAP) Pulse Ox O2 Delivery O2 Flow Rate FiO2 08/21/17 04:37 98.3 67 16 104/55 (71) 97 Laboratory Tests Test 08/19/17 09:51 08/19/17 10:01 Random Glucose 122 MG/DL (74-106) Estimat Glomerular Filtration Rate 71 ML/MIN (>89) White Blood Count 3.5 TH/MM3 (4.0-11.0) Mean Corpuscular Hemoglobin Concent 31.2 % (32.0-36.0) Platelet Count 140 TH/MM3 (150-450) Laboratory Results Test 08/16/17 11:00 Cholesterol Level 178 MG/DL (120-200) HDL Cholesterol 42.1 MG/DL (40.0-60.0) Hemoglobin A1c 3.5 % (4.3-6.0) LDL Cholesterol 117 MG/DL (0-99) Triglycerides Level 96 MG/DL (42-150) Summary of Procedures No procedures done Imaging Last Impressions Hip and Pelvis X-Ray 08/18/17 0000 Signed Impressions: Service Date/Time: Friday, August 18, 2017 15:10 - CONCLUSION: Unremarkable examination of the left hip. Lobo Cuba MD Knee X-Ray 08/15/17 0000 Signed Impressions: Service Date/Time: Tuesday, August 15, 2017 15:45 - CONCLUSION: Mild changes of pyrophosphate arthropathy. No acute bony findings Lobo Cuba MD Foot X-Ray 08/15/17 0000 Signed Impressions: Service Date/Time: Tuesday, August 15, 2017 15:47 - CONCLUSION: Unremarkable limited examination of the left foot. Lobo Cuba MD Chest X-Ray 08/14/17 1241 Signed Impressions: Service Date/Time: Monday, August 14, 2017 13:02 - CONCLUSION: 1. No acute cardiopulmonary disease. Demar Knowles MD Pending results at discharge: No Medications # of Antipsychotic meds at D/C: 1 Appropriate >1 Antipsych meds?: 1 Approp Antipsych med options 1 - Minimum of three failed multiple trials of monotherapy. 2 - Documented plan to taper to monotherapy due to previous use of multiple meds OR cross-taper in progress at D/C. 3 - Documentation of augmentation of Clozapine. 4 - Justification other than those listed in allowable values 1-3, document here : Discharge Discharge Date: Aug 21, 2017 Discharge Diagnosis: (1) Unspecified psychosis Diagnosis: Principal ICD Code: F29 - Unspecified psychosis not due to a substance or known physiological condition Pt Condition on Discharge: Stable Discharge Disposition: Discharge Home Discharge Instructions Diet Instructions: Heart Healthy Diet Activities you can perform: Regular-No Restrictions Scheduled Appointment: [facility] Appointment Date: Aug 21, 2017 Appointment Time: 07:30am Discharge Time > 30 minutes Mental Status Examination Appearance: Appropriate Consciousness: Alert Orientation: Person, Place, Date/Time Motor Activity: Other (No abnormal motor movements noted) Speech: Unremarkable Language: Adequate Fund of Knowledge: Adequate Attention and Concentration: Adequate Mood: Other (Denies issues) Affect: Labile (mild) Thought Process & Associations: Linear Thought Content: Other (paranoia) Hallucination Type: None (No AVH) Delusion Type: Paranoid Suicidal Ideation: No Suicidal Plan: No Suicidal Intention: No Homicidal Ideation: No Homicidal Plan: No Homicidal Intention: No Insight: Poor Judgment: Impulsive Discharge/Advance Care Plan Health Problems: (1) Brief psychotic disorder Goals to promote your health * To prevent worsening of your condition and complications * To maintain your health at the optimal level Directions to meet your goals Take your medications as prescribed Follow your dietary instruction Follow activity as directed Keep your appointments as scheduled Take your immunizations and boosters as scheduled If your symptoms worsen call your PCP, if no PCP go to Urgent Care Center or Emergency Room For 04/06 questions related to your inpatient stay or results of tests pending at discharge, please contact Dr. Finesse Titus at Smoking is Dangerous to Your Health. Avoid second hand smoking Finesse Titus MD Aug 21, 2017 11:25
== END 2017-08-21 13:00 | disposition home or self-care (01) | DRG 885 ==
LOC: NEPC 12:09 → NEDA 08-15 11:54 → H4EA 08-15 17:50
PROVIDERS: ADMIT Psychiatry & Neurology Psychiatry; ATTEND Psychiatry & Neurology Psychiatry
DX: F29 Unspecified psychosis not due to a substance or known physiological condition (principal); N17.9 Acute kidney failure, unspecified; M62.82 Rhabdomyolysis; R45.851 Suicidal ideations; N39.0 Urinary tract infection, site not specified; E66.3 Overweight; B18.2 Chronic viral hepatitis C; E03.9 Hypothyroidism, unspecified; F43.10 Post-traumatic stress disorder, unspecified; I10 Essential (primary) hypertension; E55.9 Vitamin D deficiency, unspecified; E87.6 Hypokalemia
CPT/HCPCS: 71010; 73502; 73564; 73620; 80048; 80053; 80061; 80076; 80307; 81001; 82306; 82550; 82552; 82607; 83036; 83735; 84439; 84443; 84484; 85025; 85027; 87077; 87086; 87186; 93005; 96372; 96374; 96375; J0696; J1630; J2060; J7030; Q0163